=== PATIENT | female | born 1950 | race Caucasian/White ===

== ENCOUNTER 2016-04-10 22:17 | Emergency (ER) | payer OTHER, MEDICARE ==
[~2016-04-10] VITALS: Ht 162.6 cm; Wt 81.0 kg
[~2016-04-10 22:17] MED LIST changes: -CLOT10TR MT; -GLYCDRO6 OPB; -OMEP40CA41 PO
[2016-04-10 22:20] VITALS: TEMP 36.4; Ht 162.6 cm; Wt 81.0 kg
[2016-04-10] MEDS ORDERED: OPTIRAY 320 IV PRN (22:45)
[2016-04-11] MEDS ORDERED: OMEP40CA41 PO (00:09)
[2016-04-11] MEDS ORDERED: GLYCDRO6 OPB (00:10)
[2016-04-11] MEDS ORDERED: CLOT10TR MT (00:11)
--- NOTE | 2016-04-11 00:47 | EMERGENCY ROOM VISIT NOTE ---
History First contact with patient: 22:26 Chief Complaint: ABNORMAL LABS Stated Complaint: POSSIBLE BLOOD CLOT History of Present Illness The patient is a 65 year old female who presents to the Emergency Room with complaints of an elevated d-dimer. The patient reports that she has had shortness of breath for the past 1-2 months. She has had intermittent pain in the middle of her chest. She saw her primary care provider, who ordered her some basic testing. She was told today that her d-dimer was positive and she would need further testing to rule out a blood clot in her lungs. The patient also reports that she has chronic neck pain. She saw her chiropractor and mentioned that she had tingling in her left arm intermittently. She was told by the chiropractor that she may have had a stroke. She denies any numbness or weakness at this time. She denies any chest pain at this time. She denies any palpitations. She denies history of blood clots. She denies leg pain or swelling. Review of Systems A complete 10-point Review of Systems was discussed with the patient, with pertinent positives and negatives listed in the History of Present Illness. All remaining Review of Systems questions can be considered negative unless otherwise specified. Past Medical/Surgical History Medical Problems: (1) Carpal tunnel syndrome (2) GERD (gastroesophageal reflux disease) (3) HTN (hypertension) (4) Iron deficiency (5) Post menopausal mood disorder Family History Diabetes mellitus FH: gastric cancer FHx: cancer FHx: heart disease Social History Smoking Status: Never Smoker Alcohol Use: none Marital Status: Housing Status: lives with significant other Occupation Status: employed Current/Historical Medications Scheduled Aspirin (Aspirin Ec), 81 MG PO QAM Calcium Carbonate-Cholecalcife (Calcium Chews), 1 CHW PO TID Clotrimazole (Mycelex), 10 MG MT UD Cyanocobalamin (Vitamin B12), 1 TAB PO QAM Fluoxetine (Prozac), 20 MG PO QPM Lactobacillus Acidophilus (Lactinex), 1 TAB PO QAM Omeprazole (Prilosec), 40 MG PO BID [Stinging Nettel], 500 MG PO QAM Scheduled PRN Ajdkifmt-Tqgfcivbxbdg-Udxawvdv (Artificial Tears), 1-2 DROPS OPB DAILY PRN for DRYNESS Allergies Coded Allergies: Codeine (Verified Adverse Reaction, Mild, "MADE ME FEEL SO TERRIBLE", 03/21) NSAIDs (Verified Adverse Reaction, Unknown, STOMACH PROBLEMS, 03/21/15) Physical Exam Vital Signs Date Time Temp Pulse Resp B/P Pulse Ox O2 Delivery O2 Flow Rate FiO2 04/11/16 00:50 62 20 147/80 96 Room Air 04/10/16 23:37 58 16 157/80 96 Room Air 04/10/16 22:20 36.4 69 16 114/68 96 Room Air Physical Exam VITALS: Vitals are noted on the nurse's note and reviewed by myself. Vital signs stable. GENERAL: This is a 65-year-old female, in no acute distress, nondiaphoretic, well-developed well-nourished. SKIN: Capillary reflex less than 2 seconds. HEENT: Normocephalic. PERRLA. EOMI. Nares patent. Mucous membranes moist. Neck is supple without nuchal rigidity. HEART: Regular rate and rhythm without murmurs gallops or rubs. LUNGS: Clear to auscultation bilaterally without wheezes, rales or rhonchi. No retractions or accessory muscle use. ABDOMEN: Positive bowel sounds x 4. Soft, nontender. MUSCULOSKELETAL: No leg swelling or calf tenderness. NEURO: Patient was alert and oriented to person place and time. Normal sensation to light and sharp touch. Medical Decision & Procedures ER Provider Diagnostic Interpretation: CT HEAD: Comparison February 2013. No acute intracranial finding. Radiologist: Abdirahman Veras M.D. CTA CHEST: Comparison 04/14/14 Mild artifact. No evidence for PE. Dependent predominant lung opacity suspected to represent atelectasis. No effusions. Small hiatal hernia, postop changes right shoulder with prosthesis and other incidental findings. Radiologist: Abdirahman Veras M.D. Laboratory Results Test 04/10/16 22:40 Troponin I < 0.015 ng/ml (0-0.045) Thyroid Stimulating Hormone (TSH) 3.170 uIu/ml (0.300-4.500) ECG Indication: SOB/dyspnea Rate (beats per minute): 59 Rhythm: sinus bradycardia Findings: no acute ischemic change, no ectopy Change: no significant change Medical Decision Differential diagnosis includes pulmonary embolism, bronchitis, pneumonia, viral syndrome, CVA, neck pain, among others. The patient was evaluated as above. Labs were drawn and IV access was obtained. Imaging studies were performed and read by radiology as above. The patient was reassessed multiple times during their stay in the emergency department and remained in stable condition. The patient is a 65-year-old female who presents today for evaluation of an elevated d-dimer. CTA of the chest showed no evidence of pulmonary embolism. Labs from earlier today were unremarkable. A troponin was drawn and EKG was performed. Troponin was negative and EKG was unremarkable. The patient did report that her chiropractor had mentioned he thought she may have a CVA due to tingling in her left arm. A CT of the head was performed and was unremarkable. The patient was instructed to follow-up closely with her primary care provider. Based on the patient's presentation, lab results, and imaging studies, I feel the patient is stable for outpatient treatment. The patient was independently evaluated by Dr. Álvarez, ED attending physician, who agreed with my assessment and treatment plan. Discharge instructions were reviewed with the patient. The patient verbalized understanding of my assessment and treatment plan and was discharged home in good condition. Impression Primary Impression: Elevated d-dimer Departure Information Dispostion Home / Self-Care Condition GOOD Referrals Raciel Hector III, CRNP (PCP) Patient Instructions [facility] Additional Instructions Follow-up with your primary care provider. Call tomorrow for appointment. Return to the emergency department with worsening of your current condition or any new/concerning symptoms.
--- NOTE | 2016-04-11 00:47 | EMERGENCY ROOM VISIT NOTE ---
ED Visit Note First contact with patient: 22:26 Patient was seen by our PA/BUFFING MACHINE OPERATOR SEMIAUTOMATIC. I was involved in the patient's care and did evaluate the patient myself. I was involved in the care throughout the ER stay. Patient presents with an elevated d-dimer. She's had a cough and some shortness of breath. She is not toxic or febrile, she is not hypoxic. Chest CT does not show PE. The patient was reassured, she is being discharged home.
[2016-04-11 00:50] VITALS: BP 147/80; PULSE 62; O2SAT 96
--- NOTE | 2016-04-11 06:33 | DIAGNOSTIC IMAGING REPORT ---
CT HEAD WITHOUT CONTRAST (CT) CLINICAL HISTORY: tingling left arm POSSIBLE STROKE COMPARISON STUDY: 03/06/2013 TECHNIQUE: Axial CT of the brain is performed from the vertex to the skull base. IV contrast was not administered for this examination. CT DOSE: FINDINGS: No intra or extra-axial mass lesions are visualized. There is no CT evidence of acute cortical infarction. There is no evidence of midline shift. There is no acute hemorrhage. No calvarial fractures are visualized. There are minimal white matter hypodensities likely on a small vessel basis. There is no evidence of pathologic ventricular dilatation. There is no evidence of acute sinusitis IMPRESSION: No acute intracranial findings Electronically signed by: Jono Conley M.D. 04/11/2016 6:31 AM Dictated Date/Time: 04/11/2016 6:30 AM
--- NOTE | 2016-04-11 06:41 | DIAGNOSTIC IMAGING REPORT ---
CT ANGIOGRAPHY OF THE CHEST, PULMONARY EMBOLUS PROTOCOL CLINICAL HISTORY: Chest pain, shortness of breath and elevated d-dimer. COMPARISON STUDY: Chest CT April 14, 2014. TECHNIQUE: Following IV administration of 106 mL of [id number]-320, helical axial images of the chest were obtained utilizing the pulmonary embolus protocol. Maximal intensity projections and sagittal and coronal reformats were viewed on an independent 3D workstation. IV contrast was administered without complication. CT DOSE: 1058.05 mGy.cm FINDINGS: No pulmonary emboli are identified. There is no evidence of thoracic aortic dissection. The heart is mildly to moderately enlarged. There is no pericardial effusion. No enlarged thoracic lymph nodes are present. Central airways are patent. Groundglass opacity suggest atelectasis. There is no consolidation to suggest pneumonia. Bony thorax and upper abdomen are unremarkable. A right shoulder arthroplasty is noted. IMPRESSION: 1. No pulmonary emboli identified. 2. No acute intrathoracic findings. 3. Groundglass opacity suggestive of atelectasis. 4. Mild to moderate cardiomegaly. Electronically signed by: Shayne Enriquez M.D. 04/11/2016 6:39 AM Dictated Date/Time: 04/11/2016 6:32 AM
== END 2016-04-11 00:59 | disposition home or self-care (01) ==
LOC: C.EDB 22:18
DX: R79.1 Abnormal coagulation profile (principal); M54.2 Cervicalgia; G89.29 Other chronic pain; K21.9 Gastro-esophageal reflux disease without esophagitis; I10 Essential (primary) hypertension; Z79.82 Long term (current) use of aspirin; Z79.899 Other long term (current) drug therapy; R07.9 Chest pain, unspecified; R06.02 Shortness of breath

== ENCOUNTER → 2016-04-10 | Outpatient (CLI) | payer OTHER, MEDICARE ==
[~2016-04-10] MED LIST: ASPI81TA28 PO; CALC1CHW71 PO; CLOT10TR MT; CYAN100020 PO; FLUO20CA35 PO; GLYCDRO6 OPB; LCTX PO; OMEP40CA PO; OMEP40CA41 PO; PRED1SUS3 OPR; [UNRECOGNIZED DRUG - OTHER] PO
--- NOTE | 2016-04-10 16:59 | DIAGNOSTIC IMAGING REPORT ---
TWO VIEW CHEST CLINICAL HISTORY: Dyspnea. Atypical chest pain. FINDINGS: PA and lateral chest radiographs are compared to study dated 04/14/2014. Correlation is made with chest CT dated 04/14/2014. The heart is top normal for projection. There is mild atherosclerotic calcification of the thoracic aorta. Chronic interstitial thickening is similar to previous. No airspace consolidation or pleural effusion is identified. There is no pneumothorax. The skeletal structures are osteopenic. Degenerative changes noted throughout the thoracic spine. A right shoulder arthroplasty is in place. IMPRESSION: No active disease in the chest. Electronically signed by: Casey hCeema M.D. 04/10/2016 4:58 PM Dictated Date/Time: 04/10/2016 4:57 PM
[2016-04-10 17:39] LABS: BASO % 0.1 %; BASO ABS # 0.01 K/uL (0-0.2); COMPLETE YES; EOS % 1.6 %; HEMATOCRIT 42.6 % (37-47); IG% 0.4 %; LYMPH % 29.1 %; LYMPH ABS # 2.48 K/uL (1.2-3.4); MEAN CELL VOLUME 96.2 fL (80-100); MEAN CORPUSCULAR HEMOGLOBIN 32.3 pg (25-34); MEAN CORPUSCULAR HGB CONC 33.6 g/dl (32-36); MEAN PLATELET VOLUME 9.9 fL (7.4-10.4); MONO % 7.6 %; NEUT % 61.2 %; PLATELET COUNT 254 K/uL (130-400); RED BLOOD COUNT 4.43 M/uL (4.2-5.4); WHITE BLOOD COUNT 8.52 K/uL (4.8-10.8)
[2016-04-10 17:57] LABS: BLOOD UREA NITROGEN 23 mg/dl (7-18); BUN/CREATININE RATIO 25.5 (10-20); CALCIUM 8.9 mg/dl (8.5-10.1); CARBON DIOXIDE 28 mmol/L (21-32); CHLORIDE 104 mmol/L (98-107); CREATININE 0.91 mg/dl (0.60-1.20); GLUCOSE 89 mg/dl (70-99); POTASSIUM 3.8 mmol/L (3.5-5.1); SODIUM 142 mmol/L (136-145)
== END | disposition home or self-care (01) ==
LOC: C.RAD1850 16:23
PROVIDERS: ATTEND Nurse Practitioner Family
DX: R07.9 Chest pain, unspecified (principal); R06.02 Shortness of breath

== ENCOUNTER → 2016-04-29 | Outpatient (CLI) | payer OTHER, MEDICARE ==
[~2016-04-29] MED LIST changes: +CLOT10TR MT; +GLYCDRO6 OPB; -OMEP40CA PO; +OMEP40CA41 PO; -PRED1SUS3 OPR
== END | disposition home or self-care (01) ==
LOC: C.LAB1850 16:38
PROVIDERS: ATTEND Internal Medicine Clinical Cardiac Electrophysiology
DX: R06.02 Shortness of breath (principal)

== ENCOUNTER → 2017-01-27 | Outpatient (CLI) | payer OTHER, MEDICARE ==
[~2017-01-27] MED LIST changes: -CLOT10TR MT; -CYAN100020 PO; -GLYCDRO6 OPB; +MULT-506 PO; +POLYSOL4 OP; +SALON PAS TOP; +STINGING NETTLE PO; -[UNRECOGNIZED DRUG - OTHER] PO
--- NOTE | 2017-01-27 08:52 | DIAGNOSTIC IMAGING REPORT ---
ABDOMEN LIMITED (US) CLINICAL HISTORY: R10.812 Left upper quadrant abdominal tenderness [id number] COMPARISON STUDY: Abdominal ultrasound 07/25/2009. FINDINGS: Real-time sonographic imaging of the left upper quadrant. The spleen demonstrates a normal echotexture measures 11.6 cm in length. No perisplenic fluid collections. Normal left kidney which measures 10.6 cm. No hydronephrosis. IMPRESSION: No sonographic abnormality within the left upper quadrant. Electronically signed by: Benji Santa M.D. 01/27/2017 8:50 AM Dictated Date/Time: 01/27/2017 8:44 AM
== END | disposition home or self-care (01) ==
LOC: C.ULTR 08:10
PROVIDERS: ATTEND Nurse Practitioner Family
DX: R10.812 Left upper quadrant abdominal tenderness (principal)

== ENCOUNTER → 2017-01-27 | Outpatient (CLI) | payer OTHER, MEDICARE ==
--- NOTE | 2017-01-27 12:30 | DIAGNOSTIC IMAGING REPORT ---
CHEST 2 VIEWS ROUTINE HISTORY: COUGH,LUMBAR RADICULOPATHY,PRE-OPERATIVE EXAM COMPARISON: Chest 04/10/2016. FINDINGS: No pneumothorax. No pleural effusions. The heart is stable in size. The lungs are clear. Right shoulder prosthesis. Cervical spinal fusion hardware is again noted. Hazy appearance the left lung base is likely due to prominent mediastinal fat. This remains unchanged. IMPRESSION: No acute process. Electronically signed by: Benji Santa M.D. 01/27/2017 12:29 PM Dictated Date/Time: 01/27/2017 11:09 AM
== END | disposition home or self-care (01) ==
LOC: C.RAD1850 10:52
PROVIDERS: ATTEND Nurse Practitioner Family
DX: M54.16 Radiculopathy, lumbar region (principal); Z01.818 Encounter for other preprocedural examination; R05 Cough

== ENCOUNTER 2017-02-16 08:22 | Inpatient (IN) | payer BC, OTHER ==
[2017-01-21 12:09] VITALS: BMI 29.0
--- NOTE | 2017-01-21 12:50 | PAT Medication Instructions ---
Service Date Jan 21, 2017. Current Home Medication List Aspirin (Aspirin Ec), 81 MG PO QAM Calcium Carbonate-Cholecalcife (Calcium Chews), 1 CHW PO TID Fluoxetine (Prozac), 20 MG PO QPM Lactobacillus Acidophilus (Lactinex), 1 TAB PO QAM Multivitamin (Multivitamin), 1 TAB PO QAM Omeprazole (Prilosec), 40 MG PO BID Polyethylene Glycol-Propylene (Systane), 1 DROPS OP AM/HS [Salon Pas], 1 DOSE TOP PRN [Stinging Nettle], 1 TAB PO QAM Medication Instructions For Your Scheduled Surgery - Hold the following medications 24 hours prior to surgery: [Salon Pas], 1 DOSE TOP PRN - Hold the following medications the morning of surgery: Calcium Carbonate-Cholecalcife (Calcium Chews), 1 CHW PO TID Lactobacillus Acidophilus (Lactinex), 1 TAB PO QAM Multivitamin (Multivitamin), 1 TAB PO QAM [Stinging Nettle], 1 TAB PO QAM - Take the following medications the morning of surgery with a sip of water: Polyethylene Glycol-Propylene (Systane), 1 DROPS OP AM/HS Omeprazole (Prilosec), 40 MG PO BID Aspirin (Aspirin Ec), 81 MG PO QAM (okay to continue per surgeon) - Take the following medications as scheduled the night before surgery: Fluoxetine (Prozac), 20 MG PO QPM Polyethylene Glycol-Propylene (Systane), 1 DROPS OP AM/HS Omeprazole (Prilosec), 40 MG PO BID If you have any questions please call us at [phone] or [phone] or [phone]
[2017-01-21 13:04] LABS: BASO % 0.5 %; BASO ABS # 0.02 K/uL (0-0.2); EOS % 1.4 %; EOS ABS # 0.06 K/uL (0-0.5); HEMATOCRIT 44.1 % (37-47); HEMOGLOBIN 14.5 g/dL (12.0-16.0); LYMPH % 39.5 %; LYMPH ABS # 1.72 K/uL (1.2-3.4); MEAN CELL VOLUME 96.7 fL (80-100); MEAN CORPUSCULAR HEMOGLOBIN 31.8 pg (25-34); MEAN CORPUSCULAR HGB CONC 32.9 g/dl (32-36); MEAN PLATELET VOLUME 10.3 fL (7.4-10.4); MONO % 9.9 %; MONO ABS # 0.43 K/uL (0.11-0.59); NEUT % 48.7 %; NEUT ABS # 2.12 K/uL (1.4-6.5); PLATELET COUNT 227 K/uL (130-400); RED CELL DISTRIBUTION WIDTH CV 12.7 % (11.5-14.5); RED CELL DISTRIBUTION WIDTH SD 44.4 fL (36.4-46.3); WHITE BLOOD COUNT 4.35 K/uL (4.8-10.8)
[2017-01-21 13:12] LABS: CREATININE 0.87 mg/dl (0.60-1.20); POTASSIUM 4.1 mmol/L (3.5-5.1)
[2017-02-16] VITALS (8 sets, daily range): BP systolic 106–174; BP diastolic 64–89; PULSE 77–101; TEMP 34.7–36.9; O2SAT 93–100; Ht 162.6 cm; Wt 76.7 kg
[~2017-02-16] VITALS: Ht 162.6 cm; Wt 76.7 kg
[~2017-02-16 08:22] MED LIST changes: +CEFAZOLIN 1000MG IV PUSH 5 ML IV SCH; +LACTATED RINGER'S 1000ML 1,000 ML IV SCH
[2017-02-16] MEDS ORDERED: PROPOFOL IV EMULSION 10 MG/ML 20 ML VIAL IV ONE (08:45)
[2017-02-16] MEDS ORDERED: LARYING-O-JET KIT (LTA) ONE (08:45)
[2017-02-16] MEDS ORDERED: NEOSTIGMINE METHYLSULFATE 1 MG/ML 10ML VIAL ONE (08:45)
[2017-02-16] MEDS ORDERED: DEXAMETHASONE SOD INJ 4 MG/ML VIAL ONE (08:45)
[2017-02-16] MEDS ORDERED: MIDAZOLAM HCL 1 MG/ML 2ML VIAL ONE (08:45)
[2017-02-16] MEDS ORDERED: ONDANSETRON INJ 2 MG/ML 2 ML VIAL ONE ×2 (08:45→15:38)
[2017-02-16] MEDS ORDERED: LIDOCAINE HCL 2% 2 ML VIAL (20MG/ML) ONE (08:45)
[2017-02-16] MEDS ORDERED: SODIUM CHLORIDE 0.9% INJ 10 ML VIAL ONE (08:45)
[2017-02-16] MEDS ORDERED: FENTANYL CITRATE INJ 50 MCG/1 ML 2 ML VIAL ONE (08:45)
[2017-02-16] MEDS ORDERED: GLYCOPYRROLATE INJ 0.2 MG/ML VIAL ONE ×3 (08:45→11:56)
[2017-02-16] MEDS ORDERED: HYDROmorphone INJ 2 MG/ML SYR/VIAL ONE (08:46)
--- NOTE | 2017-02-16 09:39 | History & Physical Bridge Note ---
H&P Re-Evaluation Bridge Note: I have examined the patient, reviewed the History & Physical and in the interval since the performance of the History & Physical I have noted the following changes of clinical significance: No changes noted
--- NOTE | 2017-02-16 09:41 | History and Physical ---
History & Physical Date Feb 16, 2017. Chief Complaint Back and leg pain History of Present Illness The patient is a 66 year old female with complaints of Past Medical/Surgical History Medical Problems: (1) Carpal tunnel syndrome (2) GERD (gastroesophageal reflux disease) (3) HTN (hypertension) (4) Iron deficiency (5) Post menopausal mood disorder Additional History Hepatic Disease: No Endocrine Disorder: No Kidney Disease: No Hypertension: No Heart Disease: No Bleeding Tendencies: No Infectious Diseases: No Allergies Coded Allergies: Codeine (Verified Adverse Reaction, Mild, "MADE ME FEEL SO TERRIBLE", ) NSAIDs (Verified Adverse Reaction, Unknown, STOMACH PROBLEMS, 01/21/17) Home Medications Scheduled Aspirin (Aspirin Ec), 81 MG PO QAM Calcium Carbonate-Cholecalcife (Calcium Chews), 1 CHW PO TID Fluoxetine (Prozac), 20 MG PO QPM Lactobacillus Acidophilus (Lactinex), 1 TAB PO QAM Multivitamin (Multivitamin), 1 TAB PO QAM Omeprazole (Prilosec), 40 MG PO BID Polyethylene Glycol-Propylene (Systane), 1 DROPS OP AM/HS [Salon Pas], 1 DOSE TOP PRN [Stinging Nettle], 1 TAB PO QAM Physical Examination Skin: warm/dry, no rash Eyes: normal inspection, EOMI, sclerae normal ENT: normal ENT inspection, pharynx normal Head: normocephalic, atraumatic Neck: supple, no adenopathy, trachea midline Respiratory/Chest: lungs clear, normal breath sounds, no respiratory distress Cardiovascular: regular rate, rhythm, no edema, no murmur Abdomen / GI: normal bowel sounds, non tender Back: normal inspection Extremities: normal inspection, normal range of motion Neurologic/Psych: no motor/sensory deficits, alert, normal reflexes, oriented x 3 Diagnosis Lumbar spinal stenosis Plan of Treatment L2 to S1 decompression fusion
[2017-02-16] MEDS ORDERED: BACITRACIN 50000 UNIT VIAL ONE (10:27)
[2017-02-16] MEDS ORDERED: EpINEphrine INJ 1MG/ML AMP 1 MG/ML AMP ONE (10:28)
[2017-02-16] MEDS ORDERED: BUPIVACAINE 0.5 % 5 MG/1 ML MPF 30ML VIAL ONE (10:28)
[2017-02-16] MEDS ORDERED: ALBUMIN HUMAN 5% 12.5 GM/250 ML VIAL IV ONE (11:01)
[2017-02-16] MEDS ORDERED: EpHEDrine SULFATE INJ 50 MG/ML AMP ONE (12:34)
[2017-02-16] MEDS ORDERED: ONDANSETRON INJ 2 MG/ML 2 ML VIAL IV PRN (13:15)
[2017-02-16] MEDS ORDERED: EpHEDrine SULFATE INJ 50 MG/ML AMP IV PRN (13:15)
[2017-02-16] MEDS ORDERED: HYDROmorphone INJ 2 MG/ML SYR/VIAL IV PRN (13:15)
[2017-02-16] MEDS ORDERED: PHENYLEPHRINE 100MCG/ML 5ML SYR IV PRN (13:15)
[2017-02-16] MEDS ORDERED: ATROPINE SULFATE 0.1 MG/ML 5ML SYR IV PRN (13:15)
--- NOTE | 2017-02-16 13:37 | [facility] Operative Report ---
Operative Report Operative Date Feb 16, 2017. Pre-Operative Diagnosis Lumbar spinal stenosis Post-Operative Diagnosis Lumbar spinal stenosis Procedure(s) Performed #1 lumbar decompression medial facet was foraminotomies L2 3 L3 4 L4 5 L5-S1. #2 posterior spinal fusion L2 3 L3 4 L4 5 L5-S1. #3 placement posterior segmental instrumentation L2 to S1. #4 interbody fusion L4 5. #5 placement peek cage 13 x 22 mm L4 5. #6 placement locally harvested morcellized autograft in the posterior lateral gutters. #7 placement infuse collagen sponge about mask graft the posterior lateral gutters and ostial amp in the interbody spaces. Surgeon Dr. Kelly Learning Design Specialist Surgeon(s) Terese Hutchins PA-C Findings Severe spinal stenosis Specimens None per surgeon Description of Procedure Patient was met with preoperatively case discussed all questions addressed. After informed consent obtained patient was taken to the operative suite underwent intubation placed in a prone position on the [place] table top Archie frame. All bony prominences were well-padded eyes inspected to ensure no external or placed upon them. This point the lumbar spine was prepped and draped in normal sterile fashion. Sharp dissection with the assistance of Bovie cautery was performed onto an exposing the lamina and transverse processes of L2-L3 L4-L5 and sacral alar bilaterally. From a caudal cephalad fashion laminectomy of L5 L4 L3 L2 was performed with retention lateral recessed foraminal disease at the L2 through 3 4 for 5 levels. After this complete pedicle screws are placed in L2-L3 L4-L5 and S1 levels bilaterally with assistance of fluoroscopy. Through a transforaminal approach on the right a complete discectomy of L4 5 was performed and plate created to subcortical bleeding bone and a 13 x 22 mm peek cage filled with ostial amp bone graft tapped in position. The rods were then locked and final position bilaterally. The transverse processes of L2-L3 L4-L5 and sacral alar burred to subcortical bleeding bone. Infuse collagen sponge mask graft and locally harvested morcellized autograft was placed the posterior gutters. 15 round SUSHMA drain inserted. Incision was then closed 1 Vicryl in the fascia 2-0 Vicryl subcutaneous tediously 4 Monocryl for final skin closure Steri-Strips sterile dressings placed. Patient we can take PACU stable condition. Please note Terese Lanier was present at the entire procedure involved in patient positioning complex portions of the surgery and final skin closure. I attest to the content of the Intraoperative Record and any orders documented therein. Any exceptions are noted below.
[2017-02-16] MEDS ORDERED: SODIUM CHLORIDE 0.9% 1000ML 1,000 ML IV SCH (13:39)
[2017-02-16] MEDS ORDERED: DO NOT ADMINISTER FLU VACCINE PRN (13:45)
[2017-02-16] MEDS ORDERED: ALUMINUM/MAGNESIUM SUSP 30 ML UDC PO PRN (13:45)
[2017-02-16] MEDS ORDERED: hydrOXYzine HCL 25 MG TAB PO PRN (13:45)
[2017-02-16] MEDS ORDERED: PROMETHAZINE HCL INJ 12.5 MG in SODIUM CHLORIDE 0.9% 50ML 50 ML IV PRN (13:45)
[2017-02-16] MEDS ORDERED: MAGNESIUM HYDROXIDE SUSP 30 ML UDC PO PRN (13:45)
[2017-02-16] MEDS ORDERED: HYDROmorphone HCL 0.5MG/ML 50 ML CASSETTE IV PRN (13:45)
[2017-02-16] MEDS ORDERED: SOD PHOSPHATE/SOD BIPHOSPHATE ENEMA 132 ML BTL PR PRN (13:45)
[2017-02-16] MEDS ORDERED: HYDROmorphone INJ 1 MG/ML SYR IV PRN (13:45)
[2017-02-16] MEDS ORDERED: NALOXONE HCL 0.4 MG/1 ML VIAL/CARP IV PRN ×2 (13:45)
[2017-02-16] MEDS ORDERED: LORAZEPAM INJ 0.5 MG in SYRINGE 0.75 ML IV PRN (13:45)
[2017-02-16] MEDS ORDERED: FAMOTIDINE 20 MG TAB PO PRN (13:45)
[2017-02-16] MEDS ORDERED: LORAZEPAM 0.5 MG TAB PO PRN (13:45)
[2017-02-16] MEDS ORDERED: ACETAMINOPHEN 500 MG TAB PO PRN (13:45)
[2017-02-16] MEDS ORDERED: DO NOT ADMINISTER PNEUMOCOCCAL VACCINE PRN (13:45)
[2017-02-16] MEDS ORDERED: BISACODYL 10 MG SUPP PR PRN (13:45)
[2017-02-16] MEDS ORDERED: METOCLOPRAMIDE HCL INJ 5 MG/ML 2 ML VIAL IV PRN (13:45)
[2017-02-16] MEDS ORDERED: ACETAMINOPHEN IV 100 ML IV PRN (13:45)
--- NOTE | 2017-02-16 13:57 | DIAGNOSTIC IMAGING REPORT ---
LUMBAR SPINE, INTRAOPERATIVE FLUOROSCOPY HISTORY: L2-S1 decompression and fusion. FLUOROSCOPY TIME: 27 seconds. FINDINGS: Intraoperative fluoroscopy was provided for the lumbar spine. 4 fluoroscopic spot images were obtained. Posterior decompression fusion from L2 through S1 with pedicle screws and rods. The hardware is intact. IMPRESSION: Fluoroscopy provided for a L2-S1 posterior decompression and fusion. Electronically signed by: Benji Santa M.D. 02/16/2017 1:55 PM Dictated Date/Time: 02/16/2017 1:55 PM
[2017-02-16] MEDS ORDERED: HYDROmorphone HCL 0.5MG/ML 50 ML CASSETTE ONE (14:04)
[2017-02-16] MEDS ORDERED: ROCURONIUM BROMIDE 10 MG/ML 5 ML VIAL IV ONE (14:05)
--- NOTE | 2017-02-16 14:57 | Anesthesiology Progress Note ---
Anesthesia Post Op Note Date & Time Feb 16, 2017 at 14:57 Vital Signs Pain Intensity: 0 Vital Signs Past 12 Hours Date Time Temp Pulse Resp B/P (MAP) Pulse Ox O2 Delivery O2 Flow Rate FiO2 02/16/17 14:35 36.0 79 12 158/75 99 Nasal Cannula 4 02/16/17 14:25 74 12 166/84 99 Nasal Cannula 4 02/16/17 14:15 77 12 163/84 99 Oxymask 10 02/16/17 14:05 74 12 175/74 99 Oxymask 10 02/16/17 13:58 36.0 76 12 176/106 100 Oxymask 10 02/16/17 10:31 36.3 80 20 174/86 96 Room Air Notes Mental Status: alert / awake / arousable, participated in evaluation Pt Amnestic to Procedure: Yes Nausea / Vomiting: adequately controlled Pain: adequately controlled Airway Patency, RR, SpO2: stable & adequate BP & HR: stable & adequate Hydration State: stable & adequate Anesthetic Complications: no major complications apparent
[2017-02-16] MEDS: ONDANSETRON INJ 2 MG/ML 2 ML VIAL IV PRN (16:05)
[2017-02-16] MEDS: LACTATED RINGER'S 1000ML 1,000 ML IV SCH ×2 (16:35→23:17)
[2017-02-16] MEDS: CEFAZOLIN IV 2,000 MG in SYRINGE 0 ML IV SCH (19:43)
[2017-02-16] MEDS: DOCUSATE SODIUM/SENNA 50/8.6MG TAB PO SCH (20:51)
[2017-02-16] MEDS: PANTOprazole SOD 40 MG TAB PO SCH (20:51)
[2017-02-16] MEDS: FLUOXETINE HCL 20 MG CAP PO SCH (20:51)
[2017-02-16] MEDS ORDERED: NURSING VERBAL MED ORDER ONE (22:30)
[2017-02-17 03:09] VITALS: BP 115/63; PULSE 101; TEMP 36.5; O2SAT 95
[2017-02-17] MEDS: CEFAZOLIN IV 2,000 MG in SYRINGE 0 ML IV SCH (03:22)
[2017-02-17] MEDS ORDERED: HYDROmorphone INJ 1 MG/ML SYR IV PRN (06:00)
[2017-02-17] MEDS ORDERED: NURSING VERBAL MED ORDER ONE ×3 (06:00→14:30)
[2017-02-17] MEDS ORDERED: DC PCA SCH (06:00)
[2017-02-17 07:03] VITALS: BP 100/63; PULSE 84; TEMP 36.4; O2SAT 97
[2017-02-17 07:03] LABS: BASO % 0.1 %; BASO ABS # 0.01 K/uL (0-0.2); HEMATOCRIT 29.7 % (37-47); HEMOGLOBIN 9.8 g/dL (12.0-16.0); IG# 0.02 K/uL (0.00-0.02); LYMPH % 15.5 %; LYMPH ABS # 1.32 K/uL (1.2-3.4); MEAN CELL VOLUME 95.5 fL (80-100); MEAN CORPUSCULAR HEMOGLOBIN 31.5 pg (25-34); MEAN PLATELET VOLUME 9.6 fL (7.4-10.4); MONO % 10.2 %; MONO ABS # 0.87 K/uL (0.11-0.59); NEUT ABS # 6.31 K/uL (1.4-6.5); PLATELET COUNT 203 K/uL (130-400); RED CELL DISTRIBUTION WIDTH CV 12.7 % (11.5-14.5); RED CELL DISTRIBUTION WIDTH SD 43.9 fL (36.4-46.3); WHITE BLOOD COUNT 8.53 K/uL (4.8-10.8)
[2017-02-17 07:25] LABS: CALCIUM 8.1 mg/dl (8.5-10.1); CREATININE 0.82 mg/dl (0.60-1.20); POTASSIUM 4.1 mmol/L (3.5-5.1)
[2017-02-17] MEDS ORDERED: RXC5 PO (07:43)
--- NOTE | 2017-02-17 07:43 | Discharge Instructions ---
Discharge Instructions Date of Service Feb 17, 2017. Admission Reason for Admission: Spinal Stenosis Discharge Discharge Diagnosis / Problem: lumbar stenosis Discharge Goals Goal(s): Improve function Activity Recommendations Activity Limitations: per Instructions/Follow-up section . Instructions / Follow-Up Instructions / Follow-Up ACTIVITY RECOMMENDATIONS: SELF CARE INSTRUCTIONS AFTER THORACIC/LUMBAR FUSIONS 1. You may walk to your tolerance. It is good exercise for your legs and back. Expect some back and intermittent leg aches and pains. 2. You may perform "counter-top" level activities (make a sandwich, luis felipe with a project, etc.). 3. No bending or lifting of more than 10 pounds or back twisting of any nature (roll like a log when turning in bed). 4. You may ride in a car for 20-30 minutes at a time. No driving until after your first visit with your doctor. 5. Frequent changes of position and restricting sitting to 30 minutes at a time will help limit the amount of back spasms and stiffness you may experience. 6. You may discontinue the use of ambulatory aids (cane, crutches, etc.) once your strength and confidence allow. 7. You may osteopathic medicine teacher the shower and let water strike your incision when you arrive home at least once daily. Do not take a tub bath, sit in a hot tub or go into a swimming pool until after your first recheck in the office. SPECIAL CARE INSTRUCTIONS: VERY IMPORTANT TO READ AND REVIEW A. Your surgical incision has been closed with a cosmetic suture under the skin that will dissolve in about 6 weeks. In 14 days, you can use a pair of clean scissors and cut the suture that is left outside of the skin at the ends of your incision. 1. The small skin tapes can be removed 7 days after surgery if they have not fallen off by that point. 2. You may keep the wound open to air as much as possible to promote healing after post-op day number 5 unless told otherwise by your doctor. 3. If you think the wound looks like it is becoming infected (redness or worsening drainage) and/or you are experiencing fever, chill or worsening back pain and muscle spasms, contact the office so that we may evaluate you as soon as possible. B. Complications are uncommon, but please contact us if you have any signs or symptoms of: 1. wound infection (fever higher than 102.5 degrees F, redness, separation of wound, drainage, or increasing pain from the incision) 2. blood clots in legs (pain, swelling, redness and warmth in legs) 3. urinary tract infection (fever higher than 102.5 degrees F, burning upon urination or increased frequency of urination) 4. nerve problems (inability to walk on your toes or heels, numbness, loss of bowel or bladder control) 5. any other symptoms that concern you C. Please call the office at if you have any concerns or questions about your operation or recovery. D. No smoking! Smoking drastically decreases the chance of a solid fusion. E. Do not take any anti-inflammatory medications (Indocin, Advil, Motrin, Aspirin, Naprosyn, etc.) as these may inhibit the chance of a solid fusion. Tylenol is okay to take for pain. MANAGING PAIN AFTER SPINAL SURGERY 1. Narcotic medication is intended for short-term use and will be provided for surgical pain. Surgical pain usually lasts for a period of 4-6 weeks. Narcotic medication includes Percocet, Vicodin, Darvocet, Tylenol #3 or Lortab. 2. Longer-term pain is more appropriately treated with non-narcotic medication such as Tylenol ES. 3. Muscle spasm is not appropriately treated with narcotics. Muscle relaxers such as Soma, Flexeril or Skelaxin can be used along with Tylenol ES. 4. Remember that we all live with some "aches and pains". This is not unusual or uncommon after an injury or as we get older. a. Back pain is expected and may include muscle spasms for 4 to 6 weeks after surgery. The pain should gradually improve. If the pain worsens for no apparent reason, please contact the office. b. Intermittent leg pain may also be experienced and should not be concerned about unless it worsens for no apparent reason. If so, please contact the office. 5. We will provide appropriate medication within the normal guidelines of their prescribed use. We will also be very cautious and aware of potential abuse and extended duration of patients' medication needs. a. Pain medications are for your comfort and to assist with sleep and rest so that the tissue can heal. They are not provided in order to return to normal activity and should not be used through the day. To do so or worsening pain at night can result from ongoing tissue damage and development of tolerance to the prescribed medicine. 6. Please allow 2-3 days to process refills. Prescriptions will not be mailed but must be picked up at the office. FOLLOW UP VISIT: Keep your scheduled follow-up appointment. Any questions, please call the office at . Current Hospital Diet Patient's current hospital diet: Regular Diet Discharge Diet Recommended Diet: Regular Diet Procedures Procedures Performed: #1 lumbar decompression medial facet was foraminotomies L2 3 L3 4 L4 5 L5-S1. #2 posterior spinal fusion L2 3 L3 4 L4 5 L5-S1. #3 placement posterior segmental instrumentation L2 to S1. #4 interbody fusion L4 5. #5 placement peek cage 13 x 22 mm L4 5. #6 placement locally harvested morcellized autograft in the posterior lateral gutters. #7 placement infuse collagen sponge about mask graft the posterior lateral gutters and ostial amp in the interbody spaces. Pending Studies Studies pending at discharge: no Laboratory Results Lipid Panel Test 12/10/16 14:35 Range/Units Triglycerides Level 112 0-150 mg/dl Cholesterol Level 195 0-200 mg/dl HDL Cholesterol 68 mg/dl Cholesterol/HDL Ratio 2.9 LDL Cholesterol, Calculated 105 mg/dl Medical Emergencies . Who to Call and When: Medical Emergencies: If at any time you feel your situation is an emergency, please call 911 immediately. . Non-Emergent Contact Non-Emergency issues call your: Primary Care Provider . "Provider Documentation" section prepared by Jus Kelly. . VTE Core Measure Inpt VTE Proph given/why not?: Yolanda Malcolm, SCD's
--- NOTE | 2017-02-17 08:07 | Anesthesiology Progress Note ---
Anesthesia Post Op Note Date & Time Feb 17, 2017 at 08:07 Vital Signs Pain Intensity: 3.0 Vital Signs Past 12 Hours Date Time Temp Pulse Resp B/P (MAP) Pulse Ox O2 Delivery O2 Flow Rate FiO2 02/17/17 07:42 Room Air 02/17/17 07:03 36.4 84 16 100/63 (75) 97 Room Air 02/17/17 03:09 36.5 101 18 115/63 (80) 95 Room Air 02/16/17 23:20 Room Air 02/16/17 23:12 36.9 100 18 106/64 (78) 93 Room Air Notes Mental Status: alert / awake / arousable, participated in evaluation Pt Amnestic to Procedure: Yes Nausea / Vomiting: adequately controlled Pain: adequately controlled Airway Patency, RR, SpO2: stable & adequate BP & HR: stable & adequate Hydration State: stable & adequate Anesthetic Complications: no major complications apparent
[2017-02-17] MEDS: LACTOBACILLUS ACIDOPHILUS (FLORANEX) TAB PO SCH (08:33)
[2017-02-17] MEDS: PANTOprazole SOD 40 MG TAB PO SCH ×2 (08:33→21:59)
[2017-02-17] MEDS: ASPIRIN 81 MG ECTAB PO SCH (08:33)
--- NOTE | 2017-02-17 08:48 | Clinical Documentation Query ---
CAMMY Rivas : CLINICAL DOCUMENTATION QUERY Patient is a 66 year old female who underwent LS posterior decompression and fusion on 02/16. Preoperative H&H was 14.5 g/dl and 44.1%. POD #1, repeat values were 9.8 g/dl and 29.7%. EBL for the procedure was 500 ml's with an additional 80 ml's documented to date. Additionally, net I/O is positive for ~1,700 ml's at this time. She is being monitored with serial hematology and I/O. Please clarify as clinically appropriate. Thank you. In your clinical opinion is this patient being managed for: ( ) Acute blood loss and hemodilutional anemia ( ) Not Agree ( ) Other explanation of clinical findings (Please Explain) ( ) Unable to determine (Please Define) ( ) Need to Discuss The medical record reflects the following clinical findings, treatment, and risk factors. Clinical Indicators: As above Treatment:She is being monitored with serial hematology and I/O Risk Factors: Acute perioperative blood losses and IVF administration Please clarify and document your clinical opinion in the progress notes and discharge summary. Terms such as "probable", "suspected", "likely", "questionable", "possible", or "still to be ruled out" are acceptable. IF IN AGREEMENT, YOU MUST DOCUMENT ABOVE DIAGNOSTIC STATEMENT IN DAILY PROGRESS NOTES AND DISCHARGE SUMMARY. This document is not part of the patient's record. Thank You, Parker Ford, MONY [phone]
[2017-02-17 10:18] VITALS: BP 104/66; PULSE 82; O2SAT 99
[2017-02-17 10:40] VITALS: BP 116/62; PULSE 83; TEMP 36.8; O2SAT 94
--- NOTE | 2017-02-17 12:04 | Progress Note ---
Progress Note Date of Service Feb 17, 2017. Progress Note Patient's postop day #1 multilevel lumbar decompression fusion. Back pain is controlled. Leg pain improved. On exam she is good strength testing is sitting in a chair comfortable. Assessment status post multilevel lumbar decompression fusion replant this time will continue with physical therapy advance her bowel regiment anticipate home graft this week.
[2017-02-17] MEDS: ONDANSETRON INJ 2 MG/ML 2 ML VIAL IV PRN (12:14)
[2017-02-17] MEDS ORDERED: SALONPAS EXT PRN (14:30)
[2017-02-17] MEDS ORDERED: TRAMADOL HCL 50 MG TAB PO PRN (14:30)
[2017-02-17 15:13] VITALS: BP 134/71; PULSE 82; TEMP 36.4; O2SAT 96
[2017-02-17] MEDS: OXYCODONE HCL IR 5 MG TAB (IMMEDIATE RELEASE) PO PRN (19:39)
[2017-02-17] MEDS: DOCUSATE SODIUM/SENNA 50/8.6MG TAB PO SCH (22:00)
[2017-02-17] MEDS: FLUOXETINE HCL 20 MG CAP PO SCH (22:00)
[2017-02-17 23:09] VITALS: BP 120/84; PULSE 100; TEMP 37.4; O2SAT 90
[2017-02-18] MEDS: POLYETHYLENE (MIRALAX) 17 GM PACK PO SCH ×4 (05:41→23:10)
[2017-02-18] MEDS: ASPIRIN 81 MG ECTAB PO SCH (07:07)
[2017-02-18] MEDS: LACTOBACILLUS ACIDOPHILUS (FLORANEX) TAB PO SCH (07:08)
[2017-02-18] MEDS: PANTOprazole SOD 40 MG TAB PO SCH ×2 (07:08→21:17)
[2017-02-18 07:30] VITALS: BP 118/70; PULSE 90; TEMP 36.7; O2SAT 94
[2017-02-18 08:01] VITALS: O2SAT 94
[2017-02-18] MEDS: OXYCODONE HCL IR 5 MG TAB (IMMEDIATE RELEASE) PO PRN ×2 (10:51→19:33)
--- NOTE | 2017-02-18 10:52 | Progress Note ---
Progress Note Date of Service Feb 18, 2017. Progress Note Patient is postoperative day #2. Back pain is controlled. Leg pain improved. Vital signs stable. On exam she sitting in chair at bedside as good strength testing. Assessment status post multilevel lumbar decompression fusion. Plan at this time will continue physical therapy advance her bowel regimen anticipate home tomorrow.
[2017-02-18 11:22] VITALS: BP 122/68; PULSE 96; TEMP 36.8; O2SAT 94
[2017-02-18 16:18] VITALS: BP 113/68; PULSE 100; TEMP 36.9; O2SAT 91
[2017-02-18] MEDS: DOCUSATE SODIUM/SENNA 50/8.6MG TAB PO SCH (21:17)
[2017-02-18] MEDS: FLUOXETINE HCL 20 MG CAP PO SCH (21:17)
[2017-02-18 23:43] VITALS: BP 125/72; PULSE 94; TEMP 36.7; O2SAT 94
[2017-02-19] MEDS: OXYCODONE HCL IR 5 MG TAB (IMMEDIATE RELEASE) PO PRN ×2 (04:50→10:58)
[2017-02-19] MEDS: POLYETHYLENE (MIRALAX) 17 GM PACK PO SCH (05:33)
[2017-02-19 06:35] VITALS: BP 128/65; PULSE 86; TEMP 36.7; O2SAT 94
[2017-02-19] MEDS: LACTOBACILLUS ACIDOPHILUS (FLORANEX) TAB PO SCH (07:26)
[2017-02-19] MEDS: ASPIRIN 81 MG ECTAB PO SCH (07:26)
[2017-02-19] MEDS: PANTOprazole SOD 40 MG TAB PO SCH (07:26)
--- NOTE | 2017-02-19 08:42 | Discharge Summary ---
Orthopedic Discharge Summary Admission Date/Reason Feb 16, 2017 at 10:30 Spinal Stenosis. Discharge Date/Disposition Feb 19, 2017 Home Diagnosis Principal Diagnosis: Lumbar spinal stenosis Admission Physical Exam As per Admitting History & Physical. Hospital Course Patient underwent lumbar decompression fusion tolerated this well as taken to the orthopedic floor postop we. Postoperative day #1 she was up and ambulatory progressing nicely through postoperative day #2 subsequently postop day #3 she was discharged home. Discharge orders and instructions can be found on the chart for further review. Discharge Instructions Please refer to the electronic Patient Visit Report (Discharge Instructions) for additional information.
[2017-02-19 09:57] VITALS: BP 128/65; PULSE 86; TEMP 36.7; O2SAT 94
== END 2017-02-19 11:03 | disposition home or self-care (01) | DRG 455 ==
LOC: C.ACU 08:22 → C.3E 10:30 → ENRESERV 14:41
PROVIDERS: ADMIT Orthopaedic Surgery Orthopaedic Surgery of the Spine; ATTEND Orthopaedic Surgery Orthopaedic Surgery of the Spine
PROC: 0SG1071 Fusion of 2 or more Lumbar Vertebral Joints with Autologous Tissue Substitute, Posterior Approach, Posterior Column, Open Approach (ICD-10-PCS; principal; 2017-02-16 10:15)
PROC: 3E0U0GB Introduction of Recombinant Bone Morphogenetic Protein into Joints, Open Approach (ICD-10-PCS; principal; 2017-02-16 10:15)
PROC: 0SG3071 Fusion of Lumbosacral Joint with Autologous Tissue Substitute, Posterior Approach, Posterior Column, Open Approach (ICD-10-PCS; principal; 2017-02-16 10:15)
PROC: 0SG00AJ Fusion of Lumbar Vertebral Joint with Interbody Fusion Device, Posterior Approach, Anterior Column, Open Approach (ICD-10-PCS; principal; 2017-02-16 10:15)
PROC: 0ST20ZZ Resection of Lumbar Vertebral Disc, Open Approach (ICD-10-PCS; principal; 2017-02-16 10:15)
DX: M48.061 Spinal stenosis, lumbar region without neurogenic claudication (principal); K21.9 Gastro-esophageal reflux disease without esophagitis; D50.9 Iron deficiency anemia, unspecified; M19.90 Unspecified osteoarthritis, unspecified site; F32.9 Major depressive disorder, single episode, unspecified; Z96.611 Presence of right artificial shoulder joint; Z79.82 Long term (current) use of aspirin; Z79.899 Other long term (current) drug therapy

== ENCOUNTER → 2017-06-16 | Day surgery (SDC) | payer BC, MEDICARE, OTHER ==
[2017-06-05 13:19] VITALS: BMI 26.0
[~2017-06-16] VITALS: Ht 162.6 cm; Wt 71.4 kg
[~2017-06-16] MED LIST changes: -CEFAZOLIN 1000MG IV PUSH 5 ML IV SCH; +FEXO1TAB46 PO; -LACTATED RINGER'S 1000ML 1,000 ML IV SCH; +LIDOCAINE HCL 2% 2 ML VIAL (20MG/ML) ONE; -MULT-506 PO; +PROPOFOL IV EMULSION 10 MG/ML 20 ML VIAL ONE; -SALON PAS TOP; -STINGING NETTLE PO
[2017-06-16 11:34] VITALS: Ht 162.6 cm; Wt 71.4 kg
--- NOTE | 2017-06-16 12:00 | Endo History and Physical ---
History & Physical Date of Service: June 16, 2017. Chief Complaint: HISTORY OF GASTRIC POLYPS GERD Referring Physician: WADE HAMPTON History of Present Illness 66 yo CF who presents for EGD secondary to GERD and history of gastric polyps. Past Medical History Arthritis, Gastrointestinal Disorder, Reflux Past Surgical History Hx Cardiac Surgery: No Hx Internal Defibrillator: No Hx Pacemaker: No Hx Abdominal Surgery: Yes (HERNIA REPAIR, TUBAL) Hx Post-Op Nausea and Vomiting: No ( ) Hx Cancer Surgery: No Hx Thoracic Surgery: No Hx Orthopedic: Yes (LOWER BACK SURGERY, CERVICAL FUSION X2 (FULL ROM), RT SHOULDER REPLACEMENT) Hx Urinary Tract Surgery: No Family History Colon CA Social History Smoking Status: Never Smoker Hx Substance Use: No Hx Alcohol Use: Yes (OCCASIONAL DRINK OF WINE) Allergies Coded Allergies: Codeine (Verified Adverse Reaction, Mild, "MADE ME FEEL SO TERRIBLE", ) NSAIDs (Verified Adverse Reaction, Unknown, STOMACH PROBLEMS, 06/16/17) Current Medications Reported Home Medications Medications Dose Route/Sig Max Daily Dose Days Date Category Janneth (Fexofenadine Hcl) 180 Mg Tab 180 Mg PO DAILY 06/05/17 Reported Systane (Polyethylene Glycol-Propylene) 1 Ursula Ursula 1 Drops OP AM/HS 01/21/17 Reported Prilosec (Omeprazole) 40 Mg Cap 40 Mg PO BID 04/11/16 Reported Aspirin Ec (Aspirin) 81 Mg Tab 81 Mg PO QAM 10/28/13 Reported Calcium Chews (Calcium Carbonate-Cholecalcife) 1 Chw Chw 1 Chw PO TID 03/06/13 Reported Lactinex (Lactobacillus Acidophilus) Tab 1 Tab PO QAM 04/01/11 Reported Prozac (Fluoxetine HCl) 20 Mg Cap 20 Mg PO QAM 05/10/10 Reported Vital Signs Weight (Kilograms): 71.36 Height (Feet): 5 Height (Inches): 4 Date Time Temp Pulse Resp B/P (MAP) Pulse Ox O2 Delivery O2 Flow Rate FiO2 06/16/17 11:41 36.6 78 18 143/81 (101) 97 Room Air Physical Exam General Appearance: WD/WN, no apparent distress Respiratory/Chest: Auscultation: breath sounds normal Cardiovascular: Heart Auscultation: RRR Abdomen: Bowel Sounds: normal Inspection & Palpation: soft, non-distended, no tenderness, guarding & rebound Assessment and Plan Assessment: 66 yo CF who presents for EGD secondary to GERD and history of gastric polyps. Plan: Proceed with EGD.
--- NOTE | 2017-06-16 12:23 | Discharge Instructions ---
Endoscopy Patient Instructions Date / Procedure(s) Performed June 16, 2017. EGD Allergy Information Coded Allergies: Codeine (Verified Adverse Reaction, Mild, "MADE ME FEEL SO TERRIBLE", ) NSAIDs (Verified Adverse Reaction, Unknown, STOMACH PROBLEMS, 06/16/17) Discharge Date / Findings June 16, 2017. Gastric polyps s/p biopsies Medication Instructions OK to resume all medications today as prescribed Reported Home Medications Medications Dose Route/Sig Max Daily Dose Days Date Category Janneth (Fexofenadine Hcl) 180 Mg Tab 180 Mg PO DAILY 06/05/17 Reported Systane (Polyethylene Glycol-Propylene) 1 Ursula Ursula 1 Drops OP AM/HS 01/21/17 Reported Prilosec (Omeprazole) 40 Mg Cap 40 Mg PO BID 04/11/16 Reported Aspirin Ec (Aspirin) 81 Mg Tab 81 Mg PO QAM 10/28/13 Reported Calcium Chews (Calcium Carbonate-Cholecalcife) 1 Chw Chw 1 Chw PO TID 03/06/13 Reported Lactinex (Lactobacillus Acidophilus) Tab 1 Tab PO QAM 04/01/11 Reported Prozac (Fluoxetine HCl) 20 Mg Cap 20 Mg PO QAM 05/10/10 Reported Provider Instructions Activity Restrictions - No exercising or heavy lifting for 24 hours. - Do not drink alcohol the day of the procedure. - Do not drive a car or operate machinery until the day after the procedure. - Do not make any important decisions or sign important papers in 24 hours after the procedure. Following Day: - Return to full activity which may include returning to work/school. Diet Start your diet with liquids and light foods (jello, soup, juice, toast). Then eat your usual diet if not nauseated. Treatment For Common After Affects For mild abdominal pain, bloating, or excessive gas: - Rest - Eat lightly - Lie on right side Follow-Up Information Follow-up with WADE HAMPTON as scheduled Anesthesia Information What You Should Know You have had a procedure that required some medicine to reduce anxiety and discomfort. This treatment is called moderate sedation. After receiving the treatment, you may be sleepy, but you will be able to breathe on your own. The effects of the treatment may last for several hours. Follow these instructions along with Activity/Diet recommendations noted above: * Do NOT do anything where dizziness or clumsiness would be dangerous. * Rest quietly at home today, then you can be up and about tomorrow. * Have a responsible person stay with you the rest of today. * You may have had an I.V. today. If so, you may take the dressing off later today. Recommendations Call your doctor if: * Trouble breathing * Continuous vomiting for more than 24 hours * Temperature above 101 degrees * Severe abdominal pain or bloating * Pain not relieved by pain medicine ordered * There is increased drainage or redness from any incision * A large amount of rectal bleeding greater than 2-3 tablespoons. (If you had a polyp/s removed or have hemorrhoids, a small amount of blood - from the rectum is to be expected.) * You have any unanswered questions or concerns. IN THE EVENT OF A SERIOUS EMERGENCY, GO TO THE NEAREST EMERGENCY ROOM Your discharge instructions were prepared by provider Mike Forrest. Patient Instructions Signature Page Roxana Schaefer Patient (or Guardian) Signature/Date: I have read and understand the instructions given to me by my caregivers. Caregiver/RN/Doctor Signature/Date: The above-named patient and/or guardian has received patient instructions on this date. + Original Patient Signature Page (only) stays with chart. Please make copy for patient.
--- NOTE | 2017-06-16 12:31 | GI REPORT ---
Patient Name: Roxana Schaefer Procedure Date: 06/16/2017 12:01 PM Date of : 1950 Admit Type: Outpatient Age: 66 Gender: Female Attending MD: Mike Forrest DO Procedure: Upper GI endoscopy Providers: Mike Forrest DO Referring MD: Raciel Hector Indications: Follow-up of gastro-esophageal reflux disease, History of Gastric polyps Medicines: Monitored Anesthesia Care Complications: No immediate complications. Estimated Blood Loss: Estimated blood loss: none. Procedure: Pre-Anesthesia Assessment: - Prior to the procedure, a History and Physical was performed, and patient medications and allergies were reviewed. The patient's tolerance of previous anesthesia was also reviewed. The risks and benefits of the procedure and the sedation options and risks were discussed with the patient. All questions were answered, and informed consent was obtained. Prior Anticoagulants: The patient has taken no previous anticoagulant or antiplatelet agents. ASA Grade Assessment: II - A patient with mild systemic disease. After reviewing the risks and benefits, the patient was deemed in satisfactory condition to undergo the procedure. After obtaining informed consent, the endoscope was passed under direct vision. Throughout the procedure, the patient's blood pressure, pulse, and oxygen saturations were monitored continuously. The scope was introduced through the mouth, and advanced to the second part of duodenum. The upper GI endoscopy was accomplished without difficulty. The patient tolerated the procedure well. Findings: The examined esophagus was normal. Multiple 3 mm sessile polyps with no stigmata of recent bleeding were found in the gastric fundus. Biopsies were taken with a cold forceps for histology. The examined duodenum was normal. Impression: - Normal esophagus. - Multiple gastric polyps. Biopsied. - Normal examined duodenum. Recommendation: - Resume previous diet. - Continue present medications. - Await pathology results. - Return to primary care physician as previously scheduled. Mike Forrest DO 06/16/2017 12:31:17 PM This report has been signed electronically. Note Initiated On: 06/16/2017 12:01 PM Number of Addenda: 0 I attest to the content of the Intraoperative Record and orders documented therein, exceptions below {[id number]}
[2017-06-16 12:56] VITALS: BP 125/68; PULSE 60; O2SAT 99
--- NOTE | 2017-06-16 13:00 | Anesthesiology Progress Note ---
Anesthesia Post Op Note Date & Time June 16, 2017 at 13:00 Vital Signs Pain Intensity: 0 Vital Signs Past 12 Hours Date Time Temp Pulse Resp B/P (MAP) Pulse Ox O2 Delivery O2 Flow Rate FiO2 06/16/17 12:56 60 16 125/68 (87) 99 Room Air 06/16/17 12:41 66 16 128/76 (93) 100 Room Air 06/16/17 12:26 36.2 73 16 107/57 (74) 95 Room Air 06/16/17 11:41 36.6 78 18 143/81 (101) 97 Room Air Notes Mental Status: alert / awake / arousable, participated in evaluation Pt Amnestic to Procedure: Yes Nausea / Vomiting: adequately controlled Pain: adequately controlled Airway Patency, RR, SpO2: stable & adequate BP & HR: stable & adequate Hydration State: stable & adequate Anesthetic Complications: no major complications apparent
== END | disposition home or self-care (01) ==
LOC: C.GI 10:45
PROVIDERS: ATTEND Internal Medicine
DX: K31.7 Polyp of stomach and duodenum (principal); K21.9 Gastro-esophageal reflux disease without esophagitis; M19.90 Unspecified osteoarthritis, unspecified site; Z88.5 Allergy status to narcotic agent; Z88.6 Allergy status to analgesic agent; Z79.82 Long term (current) use of aspirin; Z98.1 Arthrodesis status; Z96.611 Presence of right artificial shoulder joint

== ENCOUNTER 2021-08-14 06:47 | Observation (INO) ==
--- NOTE | 2021-07-10 13:09 | PAT Medication Instructions ---
Medication Instructions Date of Service July 10, 2021 Home Medications Medication Instructions Recorded albuterol sulfate 90 mcg/actuation 2 puff INHALATION Q6H PRN #18 gm 08/07/20 aerosol inhaler fluoxetine 20 mg capsule 20 mg PO QPM #90 cap 01/08/21 albuterol sulfate 90 mcg/actuation aerosol inhaler 2 puff INHALATION Q6H PRN calcium carbonate 500 mg-vitamin D3 5 mcg (200 unit) tablet (Calcium 500 + D) 2 tab PO QAM fexofenadine 180 mg tablet (Allergy Relief (fexofenadine)) 180 mg PO QAM multivitamin 1 tab PO QAM fluoxetine 20 mg capsule 20 mg PO QPM DO NOT take the morning of surgery calcium carbonate 500 mg-vitamin D3 5 mcg (200 unit) tablet (Calcium 500 + D) 2 tab PO QAM fexofenadine 180 mg tablet (Allergy Relief (fexofenadine)) 180 mg PO QAM multivitamin 1 tab PO QAM Take morning of surgery With a small sip of water, OTHERWISE NOTHING TO EAT OR DRINK AFTER MIDNIGHT: albuterol sulfate 90 mcg/actuation aerosol inhaler 2 puff INHALATION Q6H PRN (use if needed; please bring rescue inhaler with you to hospital day of surgery if possible) Take evening before surgery albuterol sulfate 90 mcg/actuation aerosol inhaler 2 puff INHALATION Q6H PRN (if needed) fluoxetine 20 mg capsule 20 mg PO QPM Other Notes If you have any questions please call us at [phone] or [phone] or [phone] or [phone]
--- NOTE | 2021-07-12 08:31 | Anesthesiology Consultation ---
Date of Service July 12, 2021 Assessment & Plan (1) Encounter for pre-operative examination: - difficult airway: h/o cervical arthrodesis x 2 and glidescope intubation. - COVID screening: Per assessment on 07/12/2021: Travel screen negative, no known COVID-19 positive contacts or current COVID-19 related symptoms in past 2 weeks. Pt vaccinated. Surgeon arranging preop COVID testing, scheduled 08/09/2021. Awaiting results. Chart Review Chart Review: Acceptable Risk for Surgery and Patient seen in Pre Admission Testing Teaching & Discussion Pre-Anesthesia Teaching/Discussion Notes: Instructed NPO after midnight before surgery, except medications with 15 cc of water. Medication instructions provided according to the PAT guidelines. History Surgery Operation Date: 08/14/21 11:55 Proposed Procedures p Left Total Shoulder Arthroplasty, Distal Clavical Excision, Biceps Tenodesis - Manny Mckeon MD Height/Weight Height: 5 ft 5.25 in Weight: 72.8 kg Allergies Allergy/AdvReac Type Severity Reaction Status Date / Time codeine AdvReac Mild [place] Verified 07/10/21 11:36 "terrible" NSAIDS (Non-Steroidal AdvReac Mild Stomach Verified 07/10/21 13:10 Anti-Inflamma issues sabrina dressing Allergy Mild Skin Uncoded 07/10/21 13:10 "burnt" Medications Home Medications Medication Instructions Recorded Confirmed Last Taken albuterol sulfate 90 mcg/actuation 2 puff INHALATION Q6H PRN #18 gm 08/07/20 07/10/21 Unknown aerosol inhaler calcium carbonate 500 mg-vitamin 2 tab PO QAM 10/26/20 07/10/21 11/20/20 D3 5 mcg (200 unit) tablet (Calcium 500 + D) fexofenadine 180 mg tablet 180 mg PO QAM 10/26/20 07/10/21 11/20/20 (Allergy Relief (fexofenadine)) multivitamin 1 tab PO QAM 10/26/20 07/10/21 11/20/20 fluoxetine 20 mg capsule 20 mg PO QPM #90 cap 01/08/21 07/10/21 Unknown Past Medical History Medical History (Updated 07/12/21 @ 08:41 by Deandra Huynh PA-C) Carotid artery plaque mild bilat ICA on 2021 neck CTA Depression pt denies, states occasionally takes fluoxetine for xavi-menopausal mood swings when needed GERD (gastroesophageal reflux disease) controlled, stable per pt History of skin cancer History of uterine leiomyoma HTN (hypertension) Per records, pt denies Lumbosacral stenosis with neurogenic claudication Mild cognitive impairment Word searching issues, follows with [place] neuro Palpitations pt denies Schatzki's ring of distal esophagus Seasonal allergies Reason for inhaler Temporomandibular joint disorder Right side clicking, no locking Patient denies h/o stroke, seizures, heart attack, heart failure, DM, blood clots or blood transfusions. Exercise / Class Metabolic Activity II 4-5 Yardwork/Stairs/Walk up hill (denies CP or SOB with 1 FOS) Past Family History Family History Father Family history of heart disease Myocardial infarction Brother Prostate cancer Asthma Mother Stomach cancer Other No family history of adverse response to anesthesia No pertinent family history in first degree relatives Denies family history of Ovarian cancer Breast cancer Colorectal cancer Past Surgical History Surgical History History of colonoscopy History of esophagogastroduodenoscopy (EGD) Multiple (most recent 11/21/20) History of lumpectomy RT (BENIGN) History of spinal fusion L2-S1 discectomy and fusion (02/16/17): Grade view 1 via elective glidescope #3 (limited cervical ROM), ETT 7 at [facility] History of tonsillectomy 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 ([facility] Ja) History of total shoulder replacement RIGHT History of tubal ligation History of umbilical hernia repair Status post cervical arthrodesis x2 Past Anesthesia History Difficult Airway and No Family Hx of Anesthesia Complications History of PONV No Hx of Motion Sickness and History of PONV (once, pt states otherwise no issues) Social History Smoking Status: Never smoker Do You Dip or Chew Tobacco: No Hx Alcohol Use: Yes Alcohol type: wine alcohol intake frequency: a few times a month Hx Substance Use: No substance use type: does not use Review of Systems Snoring, denies witnessed apneas. Patient denies chest pain, shortness of breath, dyspnea on exertion, fever, chills, cough, or wheezing. Physical Exam Vital Signs Vitals BP 113/72 P 71 SP02 96% on RA RESP 17 Physical Limited cervical extension range of motion TMD 3.5 finger breaths Mallampati Score 2 Dentition: intact, two missing teeth-right upper side and left lower side, one cap right lower side; denies chipped teeth, implants or bridges Lungs: normal respiratory effort. Clear throughout to auscultation, no adventitious breath sounds Cardiac: regular rate and rhythm, no murmurs noted Carotid arteries: negative bruit bilat Lab Results Anesthesia Preop Results Results Anesthesia Widget: WBC 4.41 K/uL (4.8-10.8) L 07/12/21 Hgb 13.4 g/dL (12.0-16.0) 07/12/21 Hct 41.7 % (37-47) 07/12/21 Plt 274 K/uL (130-400) 07/12/21 Na 139 mmol/L (136-145) 07/12/21 K 4.2 mmol/L (3.5-5.1) 07/12/21 Cl 104 mmol/L (98-107) 07/12/21 CO2 29 mmol/L (21-32) 07/12/21 BUN 25 mg/dl (6-23) H 07/12/21 Creat 0.95 mg/dl (0.6-1.2) 07/12/21 Glucose Level 96 mg/dl (70-99(Fasting)) 07/12/21 PT 10.8 Seconds (9.0-12.0) 07/12/21 PTT 27.5 Seconds (21.0-31.0) 07/12/21 INR 1.0 (0.9-1.1) 07/12/21 HA1c 5.3 % (4.5-5.6) 07/12/21 Urine Color Dark Yellow 07/12/21 Urine Appearance Clear (Clear) 07/12/21 Urine pH 5.0 (4.5-7.5) 07/12/21 Urine Specific [place] 1.027 (1.000-1.030) 07/12/21 Urine Protein Negative (Negative) 07/12/21 Urine Glucose (UA) Negative (Negative) 07/12/21 Urine Ketones Trace (Negative) H 07/12/21 Urine Blood Negative (Negative) 07/12/21 Urine Nitrite Negative (Negative) 07/12/21 Urine Bilirubin Negative (Negative) 07/12/21 Urine Urobilinogen Negative (Negative) 07/12/21 Urine Leukocyte Esterase 2+ (Negative) H 07/12/21 Urine WBC (Auto) >30 /hpf (0-5) H 07/12/21 Urine RBC (Auto) 0-4 /hpf (0-4) 07/12/21 Urine Hyaline Casts (Auto) 1-5 /lpf (0-5) 07/12/21 Urine Epithelial Cells (Auto) >30 /lpf (0-5) H 07/12/21 Urine Bacteria (Auto) 1+ (Negative) H 07/12/21 Blood Type O Positive 07/12/21 Antibody Screen NEGATIVE 07/12/21 Testing Laboratory Results Surgeon's office made aware of abnormal UA. Electrocardiogram Date: 04/02/21 NSR, rate 75 bpm Chest X-Ray Date: 04/02/21 Left shoulder arthroplasty is incidentally noted. Lung volumes are normal. Lungs are clear. There is no pneumothorax or pleural effusion. Cardiac size is stable. Mediastinal contours are normal. There is no evidence for pulmonary edema. IMPRESSION: No acute cardiopulmonary findings. Other Testing Event monitor 04/16/20 NSR, one episode of an SVT, asymptomatic < 10 bpm Brain MRI 10/12/20 No acute intracranial findings. No change in appearance of the brain since MRI of December 03, 2015. Neck CTA 10/12/20 Lung apices are clear. There is no cervical spine fracture. Postoperative finding within the cervical spine are noted. The bilateral common carotid, cervical internal carotid and vertebral arteries are patent. There is mild atherosclerotic plaque within the bilateral cervical internal carotid arteries without stenosis. There is no dissection within the major vessels of the neck. CTA of the head will be reported separately. IMPRESSION: No stenosis or dissection within the major vessels of the neck. Head CTA 10/12/20 No acute intracranial hemorrhage, midline shift or mass affect is present. Ventricular system is normal. Basal cisterns are patent. There are no extra- axial collections. The bilateral M1, M2, A1 and A2 segments are patent. There is no central vessel occlusion. There is no intracranial aneurysm. There is persistence of the bilateral posterior cerebral arteries. Posterior circulation is intact. IMPRESSION: Unremarkable CTA of the head.
--- NOTE | 2021-08-13 18:53 | History & Physical Report ---
Date of Service August 13, 2021 Assessment & Plan (1) Primary osteoarthritis, left shoulder: Plan: Treatment options discussed with the patient. She has failed conservative measures. Risks, benefits and alternatives to surgery including but not limited to infection, DVT, pain, stiffness, need for revision surgery, damage to blood vessels, damage to nerves, PE, , were discussed with the patient and they wish to proceed. Plan on left total shoulder arthroplasty, open distal clavicle excision. Surgery scheduled for [facility] on 08/14/[address] Mckeon. All questions answered. Plan on ultram post op. F/u post operatively. History of Present Illness Chief Complaint: Left shoulder pain Primary Care Provider: Raciel Hector, III, OWNER MANAGER 71 year old female with PMHx significant for GERD, carotid artery disease, depression who presents with ongoing left shoulder pain. Pain interfering with her daily activities. She has failed conservative measures including injections and OTC medications. She would like to proceed with surgery. Patient denies headaches, sweats, fevers, chills, double vision, blurred vision, cough, sore throat, dysphagia, chest pain, sob, wheezing, n/v/d/c, numbness, tingling, fatigue, urinary symptoms, mood disorders. ROS positive for left shoulder pain and stiffness. Allergies Allergy/AdvReac Type Severity Reaction Status Date / Time codeine AdvReac Mild [place] Verified 07/18/21 07:51 "terrible" NSAIDS (Non-Steroidal AdvReac Mild Stomach Verified 07/18/21 07:51 Anti-Inflamma issues sabrina dressing Allergy Mild Skin Uncoded 07/18/21 07:51 "burnt" Home Medications Medication Instructions Recorded Confirmed Type albuterol sulfate 90 mcg/actuation 2 puff INHALATION Q6H PRN #18 gm 08/07/20 07/18/21 Rx aerosol inhaler calcium carbonate 500 mg-vitamin 2 tab PO QAM 10/26/20 07/18/21 History D3 5 mcg (200 unit) tablet (Calcium 500 + D) fexofenadine 180 mg tablet 180 mg PO QAM 10/26/20 07/18/21 History (Allergy Relief (fexofenadine)) multivitamin 1 tab PO QAM 10/26/20 07/18/21 History fluoxetine 20 mg capsule 20 mg PO QPM #90 cap 01/08/21 07/18/21 Rx Past Med/Surg History Medical History Carotid artery plaque Depression GERD (gastroesophageal reflux disease) History of skin cancer History of uterine leiomyoma HTN (hypertension) Lumbosacral stenosis with neurogenic claudication Mild cognitive impairment Palpitations Schatzki's ring of distal esophagus Seasonal allergies Temporomandibular joint disorder Surgical History History of colonoscopy History of esophagogastroduodenoscopy (EGD) History of lumpectomy History of spinal fusion History of tonsillectomy History of total right hip replacement History of total shoulder replacement History of tubal ligation History of umbilical hernia repair Status post cervical arthrodesis Family History Father Family history of heart disease Myocardial infarction Brother Prostate cancer Asthma Mother Stomach cancer Other No family history of adverse response to anesthesia No pertinent family history in first degree relatives Denies family history of Ovarian cancer Breast cancer Colorectal cancer Social History Smoking Status: Never smoker Second Hand Exposure: No; Hx Alcohol Use: Yes Alcohol type: wine Alcohol type Comment: wine coolers Alcohol Intake Frequency: Monthly or Less Hx Substance Use: No Preferred Language: Greenlandic Communication Ability: Effective Visual Impairment: No Limitations Hearing Ability: Normal Space Studies Faculty Member Required: No Beliefs That Will Affect Care: None marital status: Current Living Situation: Spouse current occupational status: 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 Safe at Home: Yes Childhood Exposure to Second-Hand Smoke: No Dental Care, Regularly: Yes Physical Activity Frequency: 5-6 Times per Week Seatbelt Use: always Sunscreen Use: Yes Assistive Devices: Glasses Review of Systems All systems reviewed & are unremarkable except as noted in HPI & below Physical Exam Constitutional: well developed and well nourished; no acute distress Eyes: PERRL, conjunctivae normal, anicteric sclerae ENMT: external ear and nose normal, oropharynx normal Neck: trachea midline, no thyromegaly Respiratory: normal respiratory effort, lungs clear to auscultation Cardiovascular: RRR, no murmur, no edema Musculoskeletal: Left shoulder: Tenderness coracoid, anterior glenoid, AC joint. Positive cross body test, positive impingement signs. Painful ROM. FF to 150 degrees, abduction to 150 degrees, ER to 70 degrees. Skin: no rashes, warm and dry Neurologic: patellar DTR's 2+ bilat, sensation intact Psychiatric: A+Ox3, euthymic affect Results & Data ([facility]) Diagnostic Findings Left shoulder: Bone on bone GH joint with osteoarthritis AC joint as well. Intact rotator cuff.
[~2021-08-14 06:47] MED LIST changes: +ACETAMINOPHEN 500 MG TAB PO SCH; -ASPI81TA28 PO; -CALC1CHW71 PO; +CeleBREX 200 MG CAP PO SCH; +FAMOTIDINE 20 MG TAB PO SCH; -FEXO1TAB46 PO; -FLUO20CA35 PO; +GABAPENTIN 300 MG CAP PO SCH; -LCTX PO; -LIDOCAINE HCL 2% 2 ML VIAL (20MG/ML) ONE; +LR 15ML/HR IV SCH; +METOCLOPRAMIDE HCL 10 MG TABLET PO SCH; -OMEP40CA41 PO; -POLYSOL4 OP; -PROPOFOL IV EMULSION 10 MG/ML 20 ML VIAL ONE; +TRANEXAMIC ACID 1,000 MG **IV Intra-op IV SCH; +TRANEXAMIC ACID 1,000 MG **IV Pre-op IV SCH; +ceFAZolin 1000MG 1,000 MG/7.5 ML SYR IV SCH; +dexAMETHasone 4 MG TAB PO SCH
[2021-08-14] MEDS ORDERED: BUPIVACAINE 0.5 % 5 MG/1 ML PF 10ML VIAL ONE (07:25)
[2021-08-14] MEDS ORDERED: DEXAMETHASONE SOD INJ 4 MG/ML VIAL ONE (08:13)
[2021-08-14] MEDS ORDERED: fentaNYL citrate 100 MCG/2 ML VIAL ONE (08:13)
[2021-08-14] MEDS ORDERED: SUCCINYLCHOLINE CHLORIDE 20 MG/ML 10 ML VIAL IV ONE (08:13)
[2021-08-14] MEDS ORDERED: ONDANSETRON INJ 2 MG/ML 2 ML VIAL ONE (08:13)
[2021-08-14] MEDS ORDERED: PROPOFOL IV EMULSION 10 MG/ML 20 ML VIAL IV ONE (08:13)
[2021-08-14] MEDS ORDERED: MIDAZOLAM HCL 1 MG/ML 2ML VIAL ONE (08:13)
[2021-08-14] MEDS ORDERED: ROCURONIUM BROMIDE 10 MG/ML 5 ML VIAL IV ONE ×2 (08:14→12:48)
[2021-08-14] MEDS ORDERED: HYDROmorphone INJ 1 MG/ML SYRINGE IV PRN (08:41)
[2021-08-14] MEDS ORDERED: ONDANSETRON INJ 2 MG/ML 2 ML VIAL IV PRN ×2 (08:41→16:05)
[2021-08-14] MEDS ORDERED: fentaNYL citrate 100 MCG/2 ML VIAL IV PRN (08:41)
[2021-08-14] MEDS ORDERED: ATROPINE SULFATE 0.1 MG/ML 10ML SYR IV PRN (08:41)
[2021-08-14] MEDS ORDERED: ePHEDrine sulfate 50 MG/ML AMP IV PRN (08:41)
--- NOTE | 2021-08-14 10:27 | History & Physical Bridge Note ---
Date of Service August 14, 2021 History & Physical Bridge Note I have examined the patient, reviewed the History & Physical and in the interval since the performance of the History & Physical I have noted the following changes of clinical significance: no changes noted
[2021-08-14] MEDS ORDERED: PHENYLEPHRINE 100MCG/ML 5ML SYR ONE (11:23)
[2021-08-14] MEDS ORDERED: EPINEPHrine INJ 1 MG/ML AMP TOP ONE (11:55)
[2021-08-14] MEDS ORDERED: SUGAMMADEX SODIUM 200 MG/2 ML VIAL IV ONE (12:53)
--- NOTE | 2021-08-14 13:41 | Post Operative Brief Note ---
Immediate Post Op Note v1 Date of Surgery August 14, 2021 Pre & Post Diagnosis Operation Date: 08/14/21 09:20 Pre-Op Diagnosis: Left Shoulder Osteoarthritis, Left Shoulder Biceps tenosynovitis Post-Op Diagnosis: Left Shoulder Osteoarthritis, Left Shoulder Biceps tenosynovitis I identified the patient and participated in the time-out.: Yes Procedure Operation Date: 08/14/21 09:20 Actual Procedures p Left Total Shoulder Arthroplasty, Distal Clavical Excision, Biceps Tenodesis(Left) - Manny Mckeon MD Surgeon Manny Mckeon MD Shellac Polisher Lukas MCLEAN Estimated Blood Loss 40 Findings Consistent with Post-Op Diagnosis Specimens Humeral head and distal clavicle Drains Hemovac Drain Anesthesia Type General Regional Complications none Disposition Disposition: Recovery Room Overlapping Procedure I was immediately available: during the entire case.
--- NOTE | 2021-08-14 13:51 | Operative Report ---
Post Operative Report Pre & Post Diagnosis Operation Date: 08/14/21 09:20 Pre-Op Diagnosis: Left Shoulder Osteoarthritis, Left Shoulder Biceps Post-Op Diagnosis: Left Shoulder Osteoarthritis, Left Shoulder Biceps I identified the patient and participated in the time-out.: Yes Procedure Operation Date: 08/14/21 09:20 Actual Procedures p Left Total Shoulder Arthroplasty, Distal Clavical Excision, Biceps Tenodesis(Left) - Manny Mckeon MD Surgeon Manny Mckeon MD Forensic Document Examiner Lukas MCLEAN Estimated Blood Loss 40 Findings Consistent with Post-Op Diagnosis Specimens Humeral head and distal clavicle Drains 2 Hemovac Anesthesia Type General Regional Complications none Disposition Disposition: Recovery Room Indications 71-year-old female with longstanding arthritis her left shoulder with radiographic [id number] glenohumeral joint and also has AC joint osteoarthritis with some calcifications in the AC joint. Description of Procedure Patient was taken to the operating room anesthetized under regional block and general anesthetic. Patient was placed in a 40 degree beachchair position with a foam headrest protective eyewear all extremities padded teds and SCDs were placed. A towel roll was placed on the medial border of the scapula of the left upper extremity. The arm was examined and range of motion demonstrated 45 degrees external rotation 150 degrees forward flexion and 90 degrees abduction. An anterior deltopectoral approach was performed. Longitudinal incision was made in deltopectoral interval. Skin incised sharply and subcutaneous flaps elevated. The deltopectoral interval was identified. The cephalic vein demonstrated normal moderately large appearing vein. The cephalic vein was retracted laterally with the deltoid. The upper centimeter of the pectoralis was released for inferior exposure. Biceps tendon demonstrated chronic tenosynovitis with intact biceps tendon and some widening of the tendon proximally in the joint consistent with chronic tendinopathy. The biceps was tenodesed to the pectoralis tendon using #2 FiberWire [id number] sutures. Proximal biceps was resected. Rotator cuff findings demonstrated intact rotator cuff with minor subacromial bursitis which was resected. The circumflex vessels were tied off with silk ties and divided laterally. The subscapularis muscle fibers were split at the level of circumflex vessels and released off the inferior capsule with a Kitner elevator and then a blunt Hohmann retractor was placed protect the axillary nerve. The rotator interval was released down to the level of the glenoid. The subscapularis tendon was taken down with a transtendinous incision leaving a cuff of tissue for repair on the lesser tuberosity. The humeral head findings demonstrated eburnated bone and inferior osteophytes which were moderate in size. The inferior osteophytes were resected using an artist chisel and rongeur. The inferior capsule was released off the bone subperiosteally using a [place] elevator. A #1 Vicryl traction suture was placed into the free edge of the subscapularis tendon. A Fukuda retractor was placed into the joint. Capsule was released with Zavala scissors down to the glenoid and off of the anterior glenoid to the rotator interval which was released to meet the capsular release creating a 360 degree release of subscapularis tendon. An anterior Bankart retractor was placed. The glenoid and labral findings demonstrated degenerative fraying of the labrum and eburnated bone on the glenoid with majority of the articular cartilage being down the bone with minor amount superior articular cartilage intact. There was a type A wear pattern. An anterior-inferior and posterior inferior capsule release was performed electrocautery on bone and a [place] elevator. The axillary nerve was protected inferiorly with the blunt Hohmann. Attention was taken back to the humeral head. Humeral head was exposed with extension and external rotation. The oscillating saw was used to make an anatomic neck cut removing the articular surface. All the circumferential remaining osteophytes were trimmed with a rongeur. The humerus was sized for a 1 nucleus and a 46 humeral head. The bone was assessed with a thumb press test and there was solid cancellous bone. The guide for the nucleus was placed centrally and then the guidepin was placed. The surface reamer was used followed by the central drill for the nucleus. The trial nucleus was inserted and the cut protector was placed. The humerus was retracted posterior to the glenoid . A Tornier retractor ,Hohmann retractors as well as an anterior Bankart retractor were placed. The glenoid was fully exposed. The Tornier Cortiloc glenoid was used. The small 30 radius size was chosen. The central drill hole was made followed by the reamer for the glenoid followed by widening the central hole for the central post. The guide for the peripheral drill holes was placed and the drill holes were made. The trial reduction performed with stable fixation. The trial removed and the glenoid copiously irrigated with pulsed saline solution. The drill holes were packed with epinephrine-soaked tampons. The [place] G cement was vacuum mixed. The Cortiloc small 30 radius glenoid component was then cemented in position after drying the glenoid after removal of the tampons. Fixation was excellent. All excess cement was cleared. When the cement cured we moved onto removing the cut protector doing a trial reduction with a 46 x 17 millimeter humeral head trial. Stability was assessed and was stable. Soft tissue tension on the subscapularis tendon was satisfactory. The trial components of the humeral head were removed and the 3 drill holes were made in the harder bone in the biceps groove area and transosseous #5 FiberWire sutures were placed. Then the humeral cut surface was reexposed with retractors and after irrigation the size 1 nucleus was impacted leaving it slightly proud until the Tornier simplicity head 46 mm x 17 mm humeral head was placed into the nucleus and then both were impacted into the humerus with a tight press-fit. Implant was assessed and noted to be stable. The humerus was reduced to the glenoid. The stability was verified. The subscapularis tendon was repaired in 2 [id number]-[id number] #2 FiberWire sutures. Lateral row fixation was performed with interrupted [id number] #2 FiberWire sutures and rotator interval was closed with #2 FiberWire sutures. Range of motion demonstrated 150 degrees forward flexion 100 degrees abduction external rotation to 60 degrees without tension on repair. The pectoralis was repaired with miicoh-[id number] #2 FiberWire sutures placing sutures back through the biceps tendon to reinforce the tenodesis. 2 Hemovac drains were placed. The deltopectoral interval was repaired with aiaorw-mi-onzez #1 Vicryl sutures. A transverse incision was made across the acromioclavicular joint. Subperiosteal dissection was performed to expose 1 cm distal clavicle. Findings at the acromioclavicular joint were arthritic changes with osteophytes superiorly and inferiorly with calcifications in the superior joint capsule. Retractors were placed. 1 cm of distal clavicle was resected with an oscillating saw. After irrigation with antibiotic solution the deltotrapezial fascia was repaired with [id number] #2 FiberWire sutures subcutaneous tissues were closed with interrupted 2-0 Vicryl and the skin was closed with anthony. Deltopectoral incision was irrigated and then the subcutaneous tissue was repaired with 2-0 Vicryl sutures and the skin was closed with anthony. Sterile dressings were applied and a sling immobilizer. The patient tolerated the procedure well. Lukas MCLEAN acted as workers compensation claims assistant throughout the procedure. He functioned as workers compensation claims assistant assisting in all aspects of the procedure including patient positioning prepping draping, arm positioning, soft tissue retraction,, instrument management, subcutaneous and skin closure and postop care the patient as well. I attest to the content of the Intraoperative Record and any orders documented therein. Any exceptions are noted below.
--- NOTE | 2021-08-14 14:44 | XRay Report ---
XR shoulder LT min 2V routine HISTORY: 71 years-old Female Post shoulder surgery left shoulder arthroplasty COMPARISON: Chest radiograph 04/02/2021 TECHNIQUE: 3 views of the left shoulder FINDINGS: Satisfactory alignment of the left shoulder arthroplasty. No acute fracture. Status post resection of the distal left clavicle. Expected postoperative soft tissue swelling with deep tissue air and overl wendy skin anthony. Surgical drainage catheter is in place. IMPRESSION: Left shoulder arthroplasty with expected postoperative changes. ACT 112: Negative or not required by law. The above report was generated using voice recognition software. It may contain grammatical, syntax o r spelling errors. Electronically signed by: Omar Perrin M.D. 08/14/2021 2:43 PM
--- NOTE | 2021-08-14 14:56 | Anesthesiology Progress Note ---
Date of Service August 14, 2021 Anesthesia Post Procedure Vital Signs Vital Signs: Temp Pulse Pulse Resp BP Pulse Ox 08/14/21 14:45 36.5 C 72 16 146/85 H 95 08/14/21 14:35 73 16 139/81 96 08/14/21 14:25 73 14 165/81 H 94 08/14/21 14:15 73 17 146/91 H 98 08/14/21 14:05 69 13 155/79 H 100 08/14/21 13:59 36.3 C L 67 14 166/81 H 97 08/14/21 10:50 64 12 159/84 H 99 08/14/21 07:22 36.6 C 64 18 151/78 H 95 Pain Intensity Left Axilla: Pain Intensity: 4 Transfer of Care Handoff Completed per policy Notes Mental Status: alert / awake / arousable and participated in evaluation Patient Amnestic to Procedure: Yes Nausea / Vomiting: adequately controlled Pain: adequately controlled Airway Patency, RR, SpO2: stable & adequate BP & HR: stable & adequate Hydration State: stable & adequate Anesthetic Complications: no major complications apparent and Pt Satisfied with anesthetic care
[2021-08-14] MEDS ORDERED: METOCLOPRAMIDE HCL INJ 5 MG/ML 2 ML VIAL IV PRN (16:05)
[2021-08-14] MEDS ORDERED: HYDROmorphone INJ 0.5 MG/0.5 ML SYR IV PRN (16:05)
[2021-08-14] MEDS ORDERED: MAGNESIUM HYDROXIDE SUSP 30 ML UDC PO PRN (16:05)
[2021-08-14] MEDS ORDERED: ALBUTEROL HFA 8 GM INHALER INH PRN (16:05)
[2021-08-14] MEDS ORDERED: NALOXONE HCL 0.4 MG/1 ML VIAL/CARP IV PRN (16:05)
[2021-08-14] MEDS ORDERED: bisacodyL 10 MG SUPP PR PRN (16:05)
[2021-08-14] MEDS: traMADol HCL 50 MG TABLET PO PRN (17:09)
[2021-08-14] MEDS: SODIUM CHLORIDE 0.9% 1000ML 1,000 ML IV SCH (17:09)
[2021-08-14] MEDS: CALCIUM 600MG + VIT D 400 IU TAB PO SCH (17:09)
--- NOTE | 2021-08-14 19:24 | Hospitalist Progress Note ---
Date of Service August 14, 2021 Assessment & Plan (1) Primary osteoarthritis, left shoulder: Plan: Postop. Per orthopedics. Pain appears to be controlled. (2) Mild cognitive impairment: Plan: Fortunately appears quite cognitively intact at this time with no real signs of delirium/etc. (3) GERD (gastroesophageal reflux disease): Plan: Continue home meds (4) DVT prophylaxis: Plan: Per orthopedics Plan: Medically appears to be stable. We will sign off of active management at this time, available if needed/happy to offer assistance if needed. Admission and Anticipated Discharge Date Admission Date: August 14, 2021 Subjective No complaints. Actually joking a little that she had a birthday and now she is 35. Pain is under good control. No other complaints. Review of Systems Review of Systems: All systems reviewed & are unremarkable except as noted in HPI & below Physical Exam Physical Exam: In general she is awake and alert pleasant no distress. HEENT normocephalic atraumatic mucous membranes moist. Breathing unlabored no accessory muscle use good effort. Skin shows no rashes no pallor or icterus. Left shoulder is dressed her arm is in a sling. Neuro shows cranial nerves II through XII be grossly intact gross motor and sensory intact. Good recent and remote recall, good sense of humor, good conversational chirag. Mental status appears to be intact. Results & Data Results & Data ([facility]) Vital Signs (Past 12 Hours) Vital Signs Temp Pulse Pulse Resp BP Pulse Ox 08/14/21 18:45 97.9 F 93 H 16 131/77 94 08/14/21 17:45 97.7 F 101 H 16 127/61 95 08/14/21 16:45 97.7 F 95 H 16 139/78 95 08/14/21 16:05 97.7 F 68 18 129/86 97 08/14/21 15:35 82 12 158/84 H 94 08/14/21 15:20 73 16 153/76 H 93 08/14/21 15:05 72 15 146/89 H 94 08/14/21 14:55 75 13 143/72 H 95 08/14/21 14:45 97.7 F 72 16 146/85 H 95 08/14/21 14:35 73 16 139/81 96 08/14/21 14:25 73 14 165/81 H 94 08/14/21 14:15 73 17 146/91 H 98 08/14/21 14:05 69 13 155/79 H 100 08/14/21 13:59 97.3 F L 67 14 166/81 H 97 08/14/21 10:50 64 12 159/84 H 99 08/14/21 07:22 97.9 F 64 18 151/78 H 95 PG Care Time/CCT Total # of Minutes Spent Total Time Spent with Patient: Total time spent is greater than 50% in coordination of care (as documented) at patient's floor/unit and/or counseling patient: Coding Level of Care Code 78014 Subseq Hosp Care Lvl 2 Diagnoses Primary osteoarthritis, left shoulder M19.012 Mild cognitive impairment G31.84 GERD (gastroesophageal reflux disease) K21.9 DVT prophylaxis Z29.9
[2021-08-14] MEDS: ceFAZolin 1000MG 1,000 MG/7.5 ML SYR IV SCH (20:22)
[2021-08-14] MEDS: DOCUSATE SODIUM 100 MG CAP PO SCH (20:22)
[2021-08-14] MEDS ORDERED: FLUoxetine HCL 20 MG CAP PO SCH (21:00)
[2021-08-14] MEDS ORDERED: SENNA 8.6 MG TAB PO SCH (21:00)
[2021-08-14] MEDS: ACETAMINOPHEN 500 MG TAB PO SCH (21:27)
[2021-08-15] MEDS: ceFAZolin 1000MG 1,000 MG/7.5 ML SYR IV SCH (02:50)
[2021-08-15] MEDS: SODIUM CHLORIDE 0.9% 1000ML 1,000 ML IV SCH (04:55)
[2021-08-15] MEDS: ACETAMINOPHEN 500 MG TAB PO SCH ×2 (05:48→13:17)
[2021-08-15 07:25] LABS: Basophils # (auto) 0.01 K/uL (0-0.2); Basophils % (auto) 0.1 %; Eosinophils # (auto) 0.01 K/uL (0-0.50); Eosinophils % (auto) 0.1 %; Hematocrit (blood only) 38.2 % (34.1-44.9); Hemoglobin 12.3 g/dl (12.0-16.0); Immature Granulocytes # (auto) 0.03 K/uL (0.00-0.02); Immature Granulocytes % (auto) 0.3 %; Lymphocytes # (auto) 2.14 K/uL (1.2-3.4); Lymphocytes % (auto) 21.5 %; Mean Corpuscular Hemoglobin 29.8 pg (25.0-34.0); Mean Corpuscular Hgb Conc 32.2 g/dL (32.0-36.0); Mean Corpuscular Volume 92.5 fL (80.0-100.0); Mean Platelet Volume 10.2 fL (9.4-12.3); Monocytes # (auto) 0.88 K/uL (0.24-0.82); Monocytes % (auto) 8.9 %; Neutrophils # (auto) 6.87 K/uL (1.4-6.5); Neutrophils % (auto) 69.1 %; Platelet Count 239 K/uL (130-400); RDW Coefficient of Variation 12.7 % (11.5-14.5); RDW Standard Deviation 42.7 fL (36.4-46.3); Red Blood Count 4.13 M/uL (3.93-5.22); White Blood Count 9.94 K/ul (4.8-10.8)
--- NOTE | 2021-08-15 07:27 | Orthopedic Progress Note ---
Date of Service August 15, 2021 Assessment & Plan (1) Primary osteoarthritis, left shoulder: Plan: Postop day 1 left total shoulder arthroplasty, distal clavicle excision -PT/OT: No active motion of shoulder -Pain management as written -DVT prophylaxis: SCDs -A.m. labs are pending -Discharge planning: Plan on discharge home with outpatient PT. Plan on discharge home today. Admission and Anticipated Discharge Date Admission Date: August 14, 2021 Subjective Patient is doing well this morning. No current complaints. Denies chest pain, shortness of breath, nausea/vomiting/diarrhea/dizziness. Review of Systems Review of Systems: All systems reviewed & are unremarkable except as noted in Subjective Physical Exam Physical Exam: Left shoulder: Dressing and sling are in place. Dressing is clean, dry, intact. Fingers are mobile. 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 This is improving. Otherwise distally neurovascular status and sensation intact. Constitutional: WD/WN, vitals as above Results & Data ([facility]) Vital Signs (Past 12 Hours) Vital Signs Temp Pulse Resp BP Pulse Ox 08/15/21 07:19 36.7 C 62 16 147/79 H 97 08/15/21 02:43 36.6 C 74 16 138/64 97 08/14/21 22:03 36.7 C 76 16 131/66 94 08/14/21 20:08 36.4 C L 87 16 143/83 H 94
[2021-08-15 07:41] LABS: BUN Creatinine Ratio 27.5 (10-20); Calcium 8.9 mg/dl (8.5-10.1); Creatinine Clr Calc Pharmacy 73.4 ml/min; Est GFR (African American) 100.1 ml/min; Est GFR (Non-African American) 86.4 ml/min; Potassium 4.1 mmol/L (3.5-5.1)
[2021-08-15] MEDS: DOCUSATE SODIUM 100 MG CAP PO SCH (08:44)
[2021-08-15] MEDS: CALCIUM 600MG + VIT D 400 IU TAB PO SCH (08:44)
[2021-08-15] MEDS ORDERED: PANTOprazole 40 MG TAB PO SCH (09:00)
[2021-08-15] MEDS ORDERED: FEXOFENADINE HCL 180 MG TAB PO SCH (09:00)
[2021-08-15] MEDS ORDERED: NON-FORMULARY MEDICATION (Multivitamin Tablet) PO SCH (09:00)
[2021-08-15] MEDS ORDERED: MULTIVITAMIN TAB PO SCH (09:00)
[2021-08-15] MEDS: traMADol HCL 50 MG TABLET PO PRN (13:17)
--- NOTE | 2021-08-16 07:49 | Discharge Summary ---
Date of Service August 16, 2021 Admission HPI Per Admitting Provider 71 year old female with PMHx significant for GERD, carotid artery disease, depression who presents with ongoing left shoulder pain. Pain interfering with her daily activities. She has failed conservative measures including injections and OTC medications. She would like to proceed with surgery. Patient denies headaches, sweats, fevers, chills, double vision, blurred vision, cough, sore throat, dysphagia, chest pain, sob, wheezing, n/v/d/c, numbness, tingling, fatigue, urinary symptoms, mood disorders. ROS positive for left shoulder pain and stiffness. Admission Exam Per Admitting Provider Constitutional: well developed and well nourished; no acute distress Eyes: PERRL, conjunctivae normal, anicteric sclerae ENMT: external ear and nose normal, oropharynx normal Neck: trachea midline, no thyromegaly Respiratory: normal respiratory effort, lungs clear to auscultation Cardiovascular: RRR, no murmur, no edema Musculoskeletal: Left shoulder: Tenderness coracoid, anterior glenoid, AC joint. Positive cross body test, positive impingement signs. Painful ROM. FF to 150 degrees, abduction to 150 degrees, ER to 70 degrees. Skin: no rashes, warm and dry Neurologic: patellar DTR's 2+ bilat, sensation intact Psychiatric: A+Ox3, euthymic affect Principal Diagnosis Left shoulder osteoarthritis Discharge Exam Left shoulder: Dressing and sling are in place. Dressing is clean, dry, intact. Fingers are mobile. 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 This is improving. Otherwise distally neurovascular status and sensation intact. Constitutional WD/WN, vitals as above Discharge Data Allergies Allergy/AdvReac Type Severity Reaction Status Date / Time codeine AdvReac Mild [place] Verified 08/14/21 07:19 "terrible" NSAIDS (Non-Steroidal AdvReac Mild Stomach Verified 08/14/21 07:19 Anti-Inflamma issues sabrina dressing Allergy Mild Skin Uncoded 08/14/21 07:19 "burnt" Consultations 08/08/21 12:34 Consult Hospitalist Routine Procedures Performed Operation Date: 08/14/21 09:20 Actual Procedures p Left Total Shoulder Arthroplasty, Distal Clavical Excision, Biceps Tenodesis(Left) - Manny Mckeon MD Ordered Studies 08/14/21 05:00 US - OR guided needle placemen Routine Hospital Course (1) Primary osteoarthritis, left shoulder: Postop day 1 left total shoulder arthroplasty, distal clavicle excision -PT/OT: No active motion of shoulder -Pain management as written -DVT prophylaxis: SCDs -A.m. labs are pending -Discharge planning: Plan on discharge home with outpatient PT. Plan on discharge home today. Lab Results 08/14/21 08/15/21 08/15/21 Range/Units 07:01 06:47 06:47 WBC 9.94 (4.8-10.8) K/ul RBC 4.13 (3.93-5.22) M/uL Hgb 12.3 (12.0-16.0) g/dl Hct 38.2 (34.1-44.9) % MCV 92.5 (80.0-100.0) fL MCH 29.8 (25.0-34.0) pg MCHC 32.2 (32.0-36.0) g/dL RDW Std Deviation 42.7 (36.4-46.3) fL RDW Coeff of [place] 12.7 (11.5-14.5) % Plt Count 239 (130-400) K/uL MPV 10.2 (9.4-12.3) fL Immature Gran % (Auto) 0.3 % Neut % (Auto) 69.1 % Lymph % (Auto) 21.5 % [place] % (Auto) 8.9 % Eos % (Auto) 0.1 % Baso % (Auto) 0.1 % Neut # (Auto) 6.87 H (1.4-6.5) K/uL Lymph # (Auto) 2.14 (1.2-3.4) K/uL [place] # (Auto) 0.88 H (0.24-0.82) K/uL Eos # (Auto) 0.01 (0-0.50) K/uL Baso # (Auto) 0.01 (0-0.2) K/uL Immature Gran # (Auto) 0.03 H (0.00-0.02) K/uL Sodium 139 (136-145) mmol/L Potassium 4.1 (3.5-5.1) mmol/L Chloride 105 (98-107) mmol/L Carbon Dioxide 30 (21-32) mmol/L Anion Gap 4 (3-11) BUN 19 (6-23) mg/dl Creatinine 0.69 (0.6-1.2) mg/dl Est Cr Clr Drug Dosing 73.4 ml/min Est GFR ( Amer) 100.1 ml/min Est GFR (Non-Af Amer) 86.4 ml/min BUN/Creatinine Ratio 27.5 H (10-20) Glucose 91 (70-99(Fasting)) mg/dl Calcium 8.9 (8.5-10.1) mg/dl SARS-CoV-2, RNA, NAAT NEGATIVE (NEGATIVE) Total Time Total Time Spent Total Time Spent (In Minutes): 20 Discharge Plan Discharge Items Patient Disposition: Home - Self-Care Reason For Visit: Left Shoulder Osteoarthritis, Left Shoulder Biceps Discharge Diagnosis: Left shoulder osteoarthritis Activity: Per Instructions section Non-emergency contact: Surgeon Call non-emergency contact if: you have any medication questions, your pain is not controlled, your pain is concerning for you, you have a fever, your temperature is above 101, your wound has increased redness and your wound has increased drainage Follow-up/Referrals: Raciel Hector III, CRNP [Primary Care Provider] - 08/21/21 9:20 am Manny Mckeon MD [Surgeon] - 08/29/21 11:30 am Diet: Regular Addtl Attending Provider Instructions: ACTIVITY RECOMMENDATIONS: SELF CARE INSTRUCTIONS AFTER TOTAL SHOULDER ARTHROPLASTY A. You may do daily exercises as taught in physical therapy while in hospital. No lifting with the operative arm. Please schedule your outpatient physical therapy appointment to begin within 2-3 days after leaving the hospital. Specific restrictions will be written on your physical therapy prescription that is provided to you. B. You are to wear your sling/immobilizer at all times EXCEPT when performing your daily exercises, participating in physical therapy and for hygiene purposes. C. You may perform dry, daily dressing changes. Please keep your incision covered. You may shower 48 hours after surgery. Do not apply soap or any ointment/lotions directly over incision. Do not soak incision in bath tub/swimming pool. D. You may use ice as needed to operative shoulder. SPECIAL CARE INSTRUCTIONS: MEDICATION INSTRUCTIONS: *It is recommended you take Aspirin 81mg daily for four weeks post-op. VERY IMPORTANT TO READ AND REVIEW A. There are a few signs you need to watch for after you are home. Call [facility] at [phone] if you experience any of the followin. Increased severe shoulder pain. Some pain is expected especially when you exercise. 2. Increased swelling in you shoulder or arm; pain or swelling in either upper extremity. 3. Any fluid drainage from the incision. 4. Shortness of breath or chest pain. B. Please call [facility] at [phone] if you have any questions or concerns about your operation or recovery. C. Call your physician if: 1. Temperature is greater than 101 degrees (F). 2. Pain is not relieved by prescribed pain medications. 3. Increase drainage or redness from incision. 4. Unanswered questions or concerns. FOLLOW UP VISIT: Please call [facility] at [phone] to schedule a follow up appointment with Dr. Mckeon or his PA in 12-14 days from your surgery date. Stand-Alone Forms: My [facility] [employer], Smoking Cessation Medications and DC Order Prescriptions: New acetaminophen [Tylenol Extra Strength] 500 mg Tablet 1,000 mg PO Q8 Qty: 60 RF: 0 tramadol 50 mg Tablet 50 - 100 mg PO .q4h-6h MDD 6 PRN (Reason: pain) Qty: 30 RF: 0 Continued albuterol sulfate 90 mcg/actuation HFA aerosol inhaler 2 puff Inhalation Q6H PRN (Reason: Shortness Of Breath Or Wheezing) Qty: 18 RF: 2 multivitamin Tablet 1 tab PO QAM RF: 0 fexofenadine [Allergy Relief (fexofenadine)] 180 mg Tablet 180 mg PO QAM RF: 0 calcium carbonate-vitamin D3 [Calcium 500 + D] 500 mg(1,250mg) -200 unit Tablet 2 tab PO QAM RF: 0 fluoxetine [Prozac] 20 mg capsule 20 mg PO QPM RF: 0 omeprazole 1 tab PO DAILY RF: 0 Discharge Orders: Discharge Order (Routine); Ordered 08/15/21 Ordered By: Delonte Hope Admission Data Admit Date/Time: 08/14/21 14:01 Attending Provider: Manny Mckeon Admit Provider: Manny Mckeon Primary Care Provider: Rcaiel Hector III Other Providers: Siuta,Paresh R Other Interventions: Discharge Summary Assessment (RN) Last Done: 08/15/21 12:18
== END 2021-08-15 15:02 | disposition home or self-care (01) ==
LOC: ASU 06:47 → INTOOBSV 14:01 → PACUINP 14:01 → 3W 15:50

== ENCOUNTER 2022-11-26 10:45 | Observation (INO) ==
--- NOTE | 2022-10-24 14:52 | PAT Medication Instructions ---
Medication Instructions Date of Service October 24, 2022 Home Medications Medication Instructions Recorded amoxicillin 500 mg capsule 2,000 mg PO DIRECTED PRN 1 HR. 06/17/22 PRIOR TO DENTAL APPT. #4 caps triamcinolone acetonide 0.1 % 1 applic topical BID PRN rash #80 10/21/22 topical cream grams calcium carbonate 500 mg-vitamin D3 5 mcg (200 unit) tablet (Calcium 500 + D) 1 tab PO QAM fexofenadine 180 mg tablet (Allergy Relief (fexofenadine)) 180 mg PO QAM multivitamin 1 tab PO QAM acetaminophen 500 mg tablet (Tylenol Extra Strength) 1,000 mg PO Q8 PRN albuterol sulfate 90 mcg/actuation aerosol inhaler (Ventolin HFA) 2 puff inhal ation Q6H PRN amoxicillin 500 mg capsule 2,000 mg PO DIRECTED PRN 1 HR. PRIOR TO DENTAL APPT. triamcinolone acetonide 0.1 % topical cream 1 applic topical BID PRN fluoxetine 40 mg capsule 40 mg PO QPM omeprazole 40 mg capsule,delayed release 40 mg PO QAM Continue as directed amoxicillin 500 mg capsule 2,000 mg PO DIRECTED PRN 1 HR. PRIOR TO DENTAL APPT. STOP taking 24 hours before surgery triamcinolone acetonide 0.1 % topical cream 1 applic topical BID PRN DO NOT take the morning of surgery calcium carbonate 500 mg-vitamin D3 5 mcg (200 unit) tablet (Calcium 500 + D) 1 tab PO QAM fexofenadine 180 mg tablet (Allergy Relief (fexofenadine)) 180 mg PO QAM multivitamin 1 tab PO QAM Take morning of surgery With a small sip of water, OTHERWISE NOTHING TO EAT OR DRINK AFTER MIDNIGHT: acetaminophen 500 mg tablet (Tylenol Extra Strength) 1,000 mg PO Q8 PRN(if needed) albuterol sulfate 90 mcg/actuation aerosol inhaler (Ventolin HFA) 2 puff inhalation Q6H PRN(if needed) omeprazole 40 mg capsule,delayed release 40 mg PO QAM Take evening before surgery acetaminophen 500 mg tablet (Tylenol Extra Strength) 1,000 mg PO Q8 PRN(if needed) albuterol sulfate 90 mcg/actuation aerosol inhaler (Ventolin HFA) 2 puff inhalation Q6H PRN(if needed) fluoxetine 40 mg capsule 40 mg PO QPM Other Notes If you have any questions please call us at [phone] or [phone] or [phone] or [phone]
--- NOTE | 2022-10-31 12:07 | Anesthesiology Consultation ---
Date of Service October 31, 2022 Assessment & Plan (1) Encounter for pre-operative examination: - difficult intubation: L2-S1 discectomy and fusion (02/16/17): Grade view 1 via elective glidescope #3 (limited cervical ROM s/p cervical spine surgeries), ETT 7 at [facility]. - Outpatient joint assessment: Patient is currently scheduled for inpatient pathway. If re-evaluated and patient/surgeon requests outpatient pathway, patient is not recommended candidate for outpatient joint program from anesthesia standpoint. Chart Review Chart Review: Acceptable Risk for Surgery and Patient seen in Pre Admission Testing Teaching & Discussion Pre-Anesthesia Teaching/Discussion Notes: Instructed NPO after midnight before surgery, except medications with 15 cc of water. Medication instructions p rovided according to the PAT guidelines. History Surgery Operation Date: 11/26/22 07:15 Proposed Procedures p Right Total Knee Arthroplasty - Manny Mckeon MD Height/Weight Height: 5 ft 3 in Weight: 73.5 kg Allergies Allergy/AdvReac Type Severity Reaction Status Date / Time codeine AdvReac Intermediate [place] Verified 10/24/22 09:10 "terrible" NSAIDS (Non-Steroidal AdvReac Intermediate Stomach Verified 10/24/22 09:10 Anti-Inflamma issues sabrina dressing Allergy Mild Skin Uncoded 10/24/22 09:10 "burnt" Medications Home Medications Medication Instructions Recorded Confirmed Last Taken calcium carbonate 500 mg-vitamin 1 tab PO QAM 10/26/20 10/24/22 04/30/22 D3 5 mcg (200 unit) tablet (Calcium 500 + D) fexofenadine 180 mg tablet 180 mg PO QAM 10/26/20 10/24/22 04/30/22 (Allergy Relief (fexofenadine)) multivitamin 1 tab PO QAM 10/26/20 10/24/22 04/30/22 acetaminophen 500 mg tablet 1,000 mg PO Q8 PRN Pain 04/30/22 10/24/22 Unknown (Tylenol Extra Strength) albuterol sulfate 90 mcg/actuation 2 puff inhalation Q6H PRN 04/30/22 10/24/22 Unknown aerosol inhaler (Ventolin HFA) Shortness Of Breath Or Wheezing amoxicillin 500 mg capsule 2,000 mg PO DIRECTED PRN 1 HR. 06/17/22 10/24/22 Unknown PRIOR TO DENTAL APPT. #4 caps triamcinolone acetonide 0.1 % 1 applic topical BID PRN rash #80 10/21/22 10/24/22 Unknown topical cream grams fluoxetine 40 mg capsule 40 mg PO QPM 10/24/22 10/24/22 Unknown omeprazole 40 mg capsule,delayed 40 mg PO QAM 10/24/22 10/24/22 Unknown release Past Medical History Medical History (Updated 10/31/22 @ 12:21 by Deandra Huynh PA-C) Carotid artery plaque no significant stenosis on 04/2022 neck CTA Depression Difficult airway for intubation L2-S1 discectomy and fusion (02/16/17): Grade view 1 via elective glidescope #3 (limited cervical ROM), ETT 7 at [facility] GERD (gastroesophageal reflux disease) controlled, stable per pt History of skin cancer yrs ago, left cheek, s/p intervention History of uterine leiomyoma HTN (hypertension) controlled, stable per pt Lumbosacral stenosis with neurogenic claudication Mild cognitive impairment Palpitations pt denies Schatzki's ring of distal esophagus Seasonal allergies Reason for inhaler Temporomandibular joint disorder Right side clicking, no locking Patient denies h/o stroke, seizures, heart attack, heart failure, DM, blood sea ts/DVTs or blood transfusions. Exercise / Class Metabolic Activity III < 4 Walking/Shop/Light housework (denies chest discomfort or shortness of breath with usual activities, lives in one floor home) Past Family History Family History Father Family history of heart disease Myocardial infarction Brother Prostate cancer Asthma Mother Stomach cancer Other No family history of adverse response to anesthesia No pertinent family history in first degree relatives Denies family history of Ovarian cancer Breast cancer Colorectal cancer Past Surgical History Surgical History History of colonoscopy History of esophagogastroduodenoscopy (EGD) Multiple (most recent 11/21/20) History of lumpectomy RT (BENIGN) History of spinal fusion L2-S1 discectomy and fusion (02/16/17): Grade view 1 via elective glidescope #3 (limited cervical ROM), ETT 7 at [facility] History of tonsillectomy History of total replacement of left shoulder joint 08/14/21 @ [facility] 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 ([facility] Ja) History of total shoulder replacement RIGHT History of tubal ligation History of umbilical hernia repair S/P shoulder replacement left Status post cervical arthrodesis x2 Past Anesthesia History No Hx of Anesthesia Complications and No Family Hx of Anesthesia Complications History of PONV No Hx of PONV and No Hx of Motion Sickness Social History Smoking Status: Never smoker Do You Dip or Chew Tobacco: No Hx Alcohol Use: Yes ("alex") Alcohol type: other alcohol intake frequency: a few times a month Hx Substance Use: No substance use type: does not use Review of Systems Snoring, denies witnessed apneas. Patient denies chest pain, shortness of breath, dyspnea on exertion, fever, chills, cough, wheezing, or palpitations. Physical Exam Vital Signs Vitals BP 123/74 P 59 TEMP 98 SP02 97% on RA RESP 17 Physical Patient resting comfortably in chair in no acute distress, alert and oriented, responding appropriately throughout visit Full cervical extension range of motion without pain TMD < 3 finger breadths Mallampati Score 3 Dentition: two caps, denies chipped or loose teeth, crowns, implants or bridges Lungs: normal respiratory effort. Good air movement, clear throughout to auscultation, no adventitious breath sounds Cardiac: regular rate and rhythm, no murmurs noted Carotid arteries: negative bruit bilat Lab Results Anesthesia Preop Results Results Anesthesia Widget: WBC 8.51 K/ul (4.8-10.8) 10/31/22 Hgb 13.8 g/dl (12.0-16.0) 10/31/22 Hct 41.1 % (37.0-47.0) 10/31/22 Plt 238 K/uL (130-400) 10/31/22 Na 139 mmol/L (136-145) 10/31/22 K 3.9 mmol/L (3.5-5.1) 10/31/22 Cl 104 mmol/L (98-107) 10/31/22 CO2 28 mmol/L (21-32) 10/31/22 BUN 35 mg/dl (6-23) H 10/31/22 Creat 0.97 mg/dl (0.6-1.2) 10/31/22 Glucose Level 92 mg/dl (70-99(Fasting)) 10/31/22 PT 10.9 Seconds (9.0-12.0) 10/31/22 PTT 25.6 Seconds (21.0-31.0) 10/31/22 INR 1.0 (0.9-1.1) 10/31/22 Urine Color Dark Yellow 10/31/22 Urine Appearance Clear (Clear) 10/31/22 Urine pH 5.5 (4.5-7.5) 10/31/22 Urine Specific [place] 1.026 (1.000-1.030) 10/31/22 Urine Protein Negative (Negative) 10/31/22 Urine Glucose (UA) Negative (Negative) 10/31/22 Urine Ketones Trace (Negative) H 10/31/22 Urine Blood Negative (Negative) 10/31/22 Urine Nitrite Negative (Negative) 10/31/22 Urine Bilirubin 1+ (Negative) H 10/31/22 Urine Urobilinogen Negative (Negative) 10/31/22 Urine Leukocyte Esterase 1+ (Negative) H 10/31/22 Urine WBC (Auto) 1-5 /hpf (0-5) 10/31/22 Urine RBC (Auto) 0-4 /hpf (0-4) 10/31/22 Urine Hyaline Casts (Auto) 1-5 /lpf (0-5) 10/31/22 Urine Epithelial Cells (Auto) >30 /lpf (0-5) H 10/31/22 Urine Bacteria (Auto) Negative (Negative) 10/31/22 Blood Type O Positive 10/31/22 Antibody Screen NEGATIVE 10/31/22 Testing Electrocardiogram Date: 10/31/22 Sinus rhythm with PACs, rate 60 bpm Chest X-Ray Date: 10/31/22 No acute cardiopulmonary findings Other Testing Head and neck CTA 04/30/22 Negative [address] neck. Negative CT angiogram of the head. Head CT 04/30/22 No acute intracranial hemorrhage, midline shift, or mass effect.
--- NOTE | 2022-11-25 08:35 | History & Physical Report ---
Date of Service November 25, 2022 Assessment & Plan (1) Primary osteoarthritis of right knee: Plan: Treatment options discussed with the patient and they wish to proceed with surgical intervention. Risks, benefits and alternatives to surgery including but not limited to infection, DVT, pain, stiffness, need for revision surgery, damage to blood vessels, damage to nerves, PE, , were discussed with the patient and they wish to proceed. Plan for right total knee arthroplasty scheduled for November 26 at [facility] with Dr. Mckeon. Plan on outpatient physical therapy postop. Plan on aspirin 81 mg twice daily postop for DVT prophylaxis. All questions answered. Patient will follow-up postoperatively. History of Present Illness Chief Complaint: Right knee pain Primary Care Provider: Raciel Hector, III, SILVER DESIGNER 72 year old female with PMHx significant for GERD, carotid artery disease, hypertension, depression who presents with ongoing right knee pain. Her pain is interfering with her daily activities. She has failed conservative measures including viscosupplementation and steroid injections as well as anti- inflammatories. She would like to proceed with surgical intervention. Patient denies headaches, sweats, fevers, chills, double vision, blurred vision, cough, sore throat, dysphagia, chest pain, sob, wheezing, n/v/d/c, numbness, tingling, fatigue, urinary symptoms, mood disorders. ROS positive for right knee pain and stiffness. Allergies Allergy/AdvReac Type Severity Reaction Status Date / Time codeine AdvReac Intermediate [place] Verified 10/24/22 09:10 "terrible" NSAIDS (Non-Steroidal AdvReac Intermediate Stomach Verified 10/24/22 09:10 Anti-Inflamma issues sabrina dressing Allergy Mild Skin Uncoded 10/24/22 09:10 "burnt" Home Medications Medication Instructions Recorded Confirmed Type calcium carbonate 500 mg-vitamin 1 tab PO QAM 10/26/20 10/24/22 History D3 5 mcg (200 unit) tablet (Calcium 500 + D) fexofenadine 180 mg tablet 180 mg PO QAM 10/26/20 10/24/22 History (Allergy Relief (fexofenadine)) multivitamin 1 tab PO QAM 10/26/20 10/24/22 History acetaminophen 500 mg tablet 1,000 mg PO Q8 PRN Pain 04/30/22 10/24/22 History (Tylenol Extra Strength) albuterol sulfate 90 mcg/actuation 2 puff inhalation Q6H PRN 04/30/22 10/24/22 History aerosol inhaler (Ventolin HFA) Shortness Of Breath Or Wheezing amoxicillin 500 mg capsule 2,000 mg PO DIRECTED PRN 1 HR. 06/17/22 10/24/22 Rx PRIOR TO DENTAL APPT. #4 caps triamcinolone acetonide 0.1 % 1 applic topical BID PRN rash #80 10/21/22 10/24/22 Rx topical cream grams fluoxetine 40 mg capsule 40 mg PO QPM 10/24/22 10/24/22 History omeprazole 40 mg capsule,delayed 40 mg PO QAM 10/24/22 10/24/22 History release Past Med/Surg History Medical History (Updated 11/25/22 @ 08:36 by Delonte Hope PA-C) Carotid artery plaque no significant stenosis on 04/2022 neck CTA Depression Difficult airway for intubation L2-S1 discectomy and fusion (02/16/17): Grade view 1 via elective glidescope #3 (limited cervical ROM), ETT 7 at [facility] GERD (gastroesophageal reflux disease) controlled, stable per pt History of skin cancer yrs ago, left cheek, s/p intervention History of uterine leiomyoma HTN (hypertension) controlled, stable per pt Lumbosacral stenosis with neurogenic claudication Mild cognitive impairment Palpitations pt denies Schatzki's ring of distal esophagus Seasonal allergies Reason for inhaler Temporomandibular joint disorder Right side clicking, no locking Surgical History History of colonoscopy History of esophagogastroduodenoscopy (EGD) Multiple (most recent 11/21/20) History of lumpectomy RT (BENIGN) History of spinal fusion L2-S1 discectomy and fusion (02/16/17): Grade view 1 via elective glidescope #3 (limited cervical ROM), ETT 7 at [facility] History of tonsillectomy History of total replacement of left shoulder joint 08/14/21 @ [facility] 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 ([facility]) History of total shoulder replacement RIGHT History of tubal ligation History of umbilical hernia repair S/P shoulder replacement left Status post cervical arthrodesis x2 Family History Father Family history of heart disease Myocardial infarction Brother Prostate cancer Asthma Mother Stomach cancer Other No family history of adverse response to anesthesia No pertinent family history in first degree relatives Denies family history of Ovarian cancer Breast cancer Colorectal cancer Social History Smoking Status: Never smoker Second Hand Exposure: No; Do You Dip or Chew Tobacco: No; Hx Alcohol Use: Yes ("seltzers") Alcohol type: other Alcohol Intake Frequency: Monthly or Less Hx Substance Use: No Preferred Language: Zambian Communication Ability: Effective Visual Impairment: No Limitations Hearing Ability: Normal Ic Designer Custom Required: No Beliefs That Will Affect Care: None marital status: Current Living Situation: Spouse current occupational status: retired current occupation: How many Children do You have: 1 Feels Safe at Home: Yes Childhood Exposure to Second-Hand Smoke: No Diet: regular Dental Care, Regularly: Yes Physical Activity Frequency: 1-2 Times per Week Seatbelt Use: always Sunscreen Use: Yes Assistive Devices: Glasses Review of Systems All systems reviewed & are unremarkable except as noted in HPI & below Physical Exam Constitutional: well developed and well nourished; no acute distress Eyes: PERRL, conjunctivae normal, anicteric sclerae ENMT: external ear and nose normal, oropharynx normal Neck: trachea midline, no thyromegaly Respiratory: normal respiratory effort, lungs clear to auscultation Cardiovascular: RRR, no murmur, no edema Musculoskeletal: Right knee: Mild effusion. Tenderness medial joint line. Mild varus alignment. Stable to valgus and varus stress test. Range of motion is 0 to 130 degrees. Skin: no rashes, warm and dry Neurologic: patellar DTR's 2+ bilat, sensation intact Psychiatric: A+Ox3, euthymic affect Results & Data Diagnostic Findings Right knee radiographs demonstrate tricompartmental arthritic changes with advanced joint space in the medial compartment. There is periarticular osteophytes.
[~2022-11-26 10:45] MED LIST changes: +BUPIVACAINE 0.5 % 5 MG/1 ML PF 10ML VIAL ONE; -LR 15ML/HR IV SCH; +LR 500ML BOLUS, THEN 15ML/HR IV SCH; +LR 60ML/HR IV SCH; +ROPIVACAINE 0.5% 5 MG/ML 30 ML VIAL ONE; +ROPIVACAINE 0.5% HCL/PF 150 MG, BUPIVACAINE 0.75% MPF 20 ML, EPINEPHrine 30MG/30ML (OR ... INSTIL SCH; -ceFAZolin 1000MG 1,000 MG/7.5 ML SYR IV SCH; +ceFAZolin 2000MG 2,000 MG/15 ML SYR IV SCH
[2022-11-26] MEDS ORDERED: MIDAZOLAM HCL 1 MG/ML 2ML VIAL ONE (12:22)
[2022-11-26] MEDS ORDERED: fentaNYL citrate PF 100 MCG/2 ML VIAL ONE (12:22)
[2022-11-26] MEDS ORDERED: LIDOCAINE 2% 2 ML VIAL/AMP(20MG/ML) INFIL ONE (12:22)
[2022-11-26] MEDS ORDERED: PROPOFOL IV EMULSION 10 MG/ML 20 ML VIAL IV ONE ×8 (12:22→12:34)
[2022-11-26] MEDS ORDERED: ONDANSETRON INJ 2 MG/ML 2 ML VIAL ONE (12:23)
--- NOTE | 2022-11-26 13:07 | History & Physical Bridge Note ---
Date of Service November 26, 2022 History & Physical Bridge Note I have examined the patient, reviewed the History & Physical and in the interval since the performance of the History & Physical I have noted the following changes of clinical significance: no changes noted
[2022-11-26] MEDS ORDERED: ORTHO JOINT ANESTHETIC ONE (13:18)
--- NOTE | 2022-11-26 15:44 | Operative Report ---
Post Operative Report Pre & Post Diagnosis Operation Date: 11/26/22 12:15 Pre-Op Diagnosis: Right Knee Osteoarthritis Post-Op Diagnosis: Right Knee Osteoarthritis I identified the patient and participated in the time-out.: Yes Procedure Operation Date: 11/26/22 12:15 Actual Procedures p Right Total Knee Arthroplasty(Right) - Manny Mckeon MD Surgeon Manny Mckeon MD Crop Specialist Delonte MCLEAN Estimated Blood Loss 5 Findings Consistent with Post-Op Diagnosis Specimens bone cuts Drains 2 Hemovac Anesthesia Type MAC Spinal Regional Complications none Disposition Disposition: Recovery Room Indications 72 female with chronic bilateral knee pain with right knee as failed conservative management. MRI demonstrates medial extrusion of her meniscus with the root partial detachment type tear with attenuation of the root attachment and bone edema medial tibial [id number] on flexion views and medial compartment. Description of Procedure The patient was taken to the operating room and anesthetized under Spinal MAC regional block anesthesia. Patient was placed supine on the the operating table. A pneumatic tourniquet was placed about the Right upper thigh. The knee exam demonstrated full range of motion no instability varus alignment. The involved leg was elevated exsanguinated with Esmarch bandage and the pneumatic tourniquet was raised to 325 millimeters mercury. A longitudinal incision was made across the anterior knee. Skin flaps were elevated. An incision was made into the medial retinaculum and extended up into the mid third of the quadriceps tendon and extended down to the tibial tubercle. Intra- articular findings demonstrated tricompartmental osteoarthritis mainly medial compartment patellofemoral joint with grade 4 osteoarthritis medial compartment with attenuation of the root attachment medial meniscus with medial extrusion of the meniscus. The knee was exposed by excising cruciate ligaments and menisci. The infrapatellar fat pad was resected. The fat pad over the anterior femur at the upper aspect of the articular surface was resected for placement of the component in that area. A subperiosteal peel lateral release was performed around the patella. The Gunter [employer] Nephew journey 2.0 posterior stabilized total knee arthroplasty system was utilized for the procedure. The custom femoral cutting guide was pinned in position. The distal femoral cut was made. The size 5, 5 in 1 cutting block was placed. The anterior posterior and chamfer cuts were made. The knee was extended and a free hand cut technique was performed to the patella. The patella width was measured and the width was reproduced using a 29 symmetrical patella component. 3 drill holes are made for the patella component pegs. The tibia was then subluxed. The custom tibial cutting block was pinned in position and the proximal tibial cut was made with the oscillating saw. Flexion and extension gaps were balanced. no releases were required. The size 3 tibial trial was externally rotated in line with the tibial tubercle and pinned in position. The punch for the stem was used. The femoral trial was inserted and centered the notch cutting devices were used and the collet was placed. Tibial trials were used for the insert. The size 12 posterior stabilized trial gave balanced ligaments through full range of motion. Patella tracking was assessed with range of motion. The patella tracked centrally. The trials were removed. The Orthomix anesthetic cocktail was injected per protocol. The cut bone surfaces and soft tissue were copiously irrigated with pulsatile lavage saline solution. The final components were cemented with Refobacin cement. The final components were Size right 5 Gunter [employer] Nephew journey 2.0 femoral component, 3 right tibial component, 12 right posterior stabilized tibial polyethylene and a 29 mm symmetrical patella. After the cement cured, the Betadine soak was used for 3 minutes. The knee was then copiously irrigated with pulsatile lavage saline solution. 2 drains were brought out laterally connected to Hemovac. The quadriceps tendon and medial retinaculum were closed with interrupted [id number] #1 Vicryl sutures. The knee was taken through full range of motion and repair was secure. Knee range of motion was 0 through 130 degrees. the subcutaneous tissues were closed with 2-0 Vicryl sutures. The skin was closed with Dong. A Standard sterile dressing was applied. compressive bandage placed an Kei wrap from the foot to t he thigh. The tourniquet was let down and the patient had good capillary refill to the extremity. The patient tolerated the procedure well. My physician licensed physical therapy assistant Lukas MCLEAN participated as janitorial assistant and was integral part in all aspects of the procedure including prepping, draping, leg positioning, soft tissue retraction, instrument management and assisted in the closure , dressings application and will participate in postoperative care the patient. I attest to the content of the Intraoperative Record and any orders documented therein. Any exceptions are noted below.
--- NOTE | 2022-11-26 16:33 | Anesthesiology Progress Note ---
Date of Service November 26, 2022 Anesthesia Post Procedure Vital Signs Vital Signs: Temp Pulse Pulse Resp BP Pulse Ox O2 Del Method 11/26/22 16:30 36.6 C 61 16 134/78 94 Room Air 11/26/22 16:20 66 16 96/73 L 95 Room Air 11/26/22 16:10 62 16 130/65 95 Room Air 11/26/22 16:00 62 15 126/67 98 Oxymask 11/26/22 15:53 37.1 C 73 18 124/61 96 Oxymask 11/26/22 11:33 36.7 C 67 20 145/68 H 96 Room Air O2 Flow Rate 11/26/22 16:30 11/26/22 16:20 11/26/22 16:10 11/26/22 16:00 5 11/26/22 15:53 5 11/26/22 11:33 Pain Intensity Lower Back: Pain Intensity: 8 Transfer of Care Handoff Completed per policy Notes Mental Status: alert / awake / arousable Patient Amnestic to Procedure: Yes Nausea / Vomiting: adequately controlled Pain: adequately controlled Airway Patency, RR, SpO2: stable & adequate BP & HR: stable & adequate Hydration State: stable & adequate Neuraxial Anesthesia: was administered and sensory block is resolving Anesthetic Complications: no major complications apparent
[2022-11-26] MEDS ORDERED: HYDROmorphone INJ 0.5 MG/0.5 ML SYR IV PRN (17:44)
[2022-11-26] MEDS ORDERED: METOCLOPRAMIDE HCL INJ 5 MG/ML 2 ML VIAL IV PRN (17:44)
[2022-11-26] MEDS ORDERED: bisacodyL 10 MG SUPP PR PRN (17:44)
[2022-11-26] MEDS ORDERED: MAGNESIUM HYDROXIDE SUSP 30 ML UDC PO PRN (17:44)
[2022-11-26] MEDS ORDERED: ALBUTEROL HFA 8 GM INHALER INH PRN (17:44)
[2022-11-26] MEDS ORDERED: NALOXONE HCL 0.4 MG/1 ML VIAL/CARP IV PRN (17:44)
[2022-11-26] MEDS ORDERED: ONDANSETRON INJ 2 MG/ML 2 ML VIAL IV PRN (17:44)
[2022-11-26] MEDS ORDERED: traMADol HCL 50 MG TABLET PO PRN (17:44)
[2022-11-26] MEDS: SODIUM CHLORIDE 0.9% 1,000 ML IV SCH (18:21)
--- NOTE | 2022-11-26 18:25 | XRay Report ---
TWO VIEWS RIGHT KNEE CLINICAL HISTORY: Postoperative examination. FINDINGS: AP and crosstable lateral portable views of the right knee are obtained. A right knee arthr oplasty is in near anatomic alignment. There has been undersurface remodeling of the patella. No acut e fracture is seen. There are expected postoperative changes around the knee including skin clips, a surgical drain, soft tissue edema, and subcutaneous gas. IMPRESSION: Expected postoperative changes status post right knee arthroplasty. No acute fracture is seen. ACT 112: Negative or not required by law. Electronically signed by: Casey Cheema M.D. 11/26/2022 6:24 PM
[2022-11-26] MEDS: ASPIRIN 81 MG ECTAB PO SCH (20:19)
[2022-11-26] MEDS: DOCUSATE SODIUM 100 MG CAP PO SCH (20:19)
[2022-11-26] MEDS ORDERED: FLUoxetine HCL 20 MG CAP PO SCH (21:00)
[2022-11-26] MEDS ORDERED: SENNA 8.6 MG TAB PO SCH (21:00)
[2022-11-26] MEDS: ceFAZolin 2000MG 2,000 MG/15 ML SYR IV SCH (21:46)
[2022-11-26] MEDS: ACETAMINOPHEN 500 MG TAB PO SCH (22:46)
[2022-11-27] MEDS: SODIUM CHLORIDE 0.9% 1,000 ML IV SCH (04:51)
[2022-11-27] MEDS: ceFAZolin 2000MG 2,000 MG/15 ML SYR IV SCH (05:57)
[2022-11-27] MEDS: ACETAMINOPHEN 500 MG TAB PO SCH (05:57)
[2022-11-27 06:44] LABS: Hematocrit (blood only) 37.4 % (37.0-47.0); Hemoglobin 12.5 g/dl (12.0-16.0); Mean Corpuscular Hemoglobin 32.6 pg (25.0-34.0); Mean Corpuscular Hgb Conc 33.4 g/dL (32.0-36.0); Mean Corpuscular Volume 97.7 fL (80.0-100.0); Mean Platelet Volume 9.9 fL (9.4-12.4); Platelet Count 220 K/uL (130-400); RDW Coefficient of Variation 11.9 % (11.5-14.5); RDW Standard Deviation 42.6 fL (36.4-46.3); Red Blood Count 3.83 M/uL (4.20-5.40); White Blood Count 9.53 K/ul (4.8-10.8)
[2022-11-27 07:13] LABS: BUN Creatinine Ratio 28.2 (10-20); Calcium 8.3 mg/dl (8.6-10.3); Creatinine Clr Calc Pharmacy 31.4 ml/min; Est GFR (African American) 97.3 ml/min; Est GFR (Non-African American) 83.9 ml/min; Potassium 4.4 mmol/L (3.5-5.1)
--- NOTE | 2022-11-27 08:08 | Orthopedic Progress Note ---
Date of Service November 27, 2022 Assessment & Plan (1) Primary osteoarthritis of right knee: Plan: Postop day #1 right total knee arthroplasty -PT/OT -Pain management as written -DVT prophylaxis: SCDs, teds, aspirin 81 mg twice daily -AM labs: Hemoglobin 12.5 from 13.8 preop. Acute blood loss due to surgical loss versus dilutional. Patient is asymptomatic. -Discharge planning: Plan on discharge home today with plans on outpatient therapy. Admission and Anticipated Discharge Date Admission Date: November 26, 2022 Subjective Patient is resting in bed comfortably. She feels well this morning. Minimal pain currently. No current complaints. Denies chest pain, shortness of breath, nausea/vomiting/diarrhea, headaches or dizziness. Review of Systems Review of Systems: All systems reviewed & are unremarkable except as noted in Subjective Physical Exam Physical Exam: Right knee: Dressing is clean, dry, intact. Toes are mobile with good dorsiflexion. No calf tenderness. Patient is able to do a straight leg raise. Distally neurovascular status and sensation is grossly intact. Results & Data Vital Signs (Past 12 Hours) Vital Signs Temp Pulse Pulse Resp BP Pulse Ox O2 Del Method 11/27/22 07:24 36.4 C L 54 L 18 132/73 99 Room Air 11/27/22 02:59 36.4 C L 62 16 123/67 95 Room Air 11/26/22 23:13 36.5 C 66 16 119/57 L 95 Room Air 11/26/22 20:10 36.3 C L 71 16 121/68 92 Room Air Laboratory Results Lab Results 11/27/22 11/27/22 Range/Units 05:52 05:52 WBC 9.53 (4.8-10.8) K/ul RBC 3.83 L (4.20-5.40) M/uL Hgb 12.5 (12.0-16.0) g/dl Hct 37.4 (37.0-47.0) % MCV 97.7 (80.0-100.0) fL MCH 32.6 (25.0-34.0) pg MCHC 33.4 (32.0-36.0) g/dL RDW Std Deviation 42.6 (36.4-46.3) fL RDW Coeff of Ferny 11.9 (11.5-14.5) % Plt Count 220 (130-400) K/uL MPV 9.9 (9.4-12.4) fL Sodium 139 (136-145) mmol/L Potassium 4.4 (3.5-5.1) mmol/L Chloride 108 H (98-107) mmol/L Carbon Dioxide 29 (21-32) mmol/L Anion Gap 2 L (3-11) BUN 20 (6-23) mg/dl Creatinine 0.71 (0.6-1.2) mg/dl Est Cr Clr Drug Dosing 31.4 ml/min Est GFR ( Amer) 97.3 ml/min Est GFR (Non-Af Amer) 83.9 ml/min BUN/Creatinine Ratio 28.2 H (10-20) Glucose 122 H (70-99(Fasting)) mg/dl Calcium 8.3 L (8.6-10.3) mg/dl
[2022-11-27] MEDS: DOCUSATE SODIUM 100 MG CAP PO SCH (08:37)
[2022-11-27] MEDS: ASPIRIN 81 MG ECTAB PO SCH (08:37)
[2022-11-27] MEDS ORDERED: CALCIUM 600MG + VIT D 400 IU TAB PO SCH (09:00)
[2022-11-27] MEDS ORDERED: PANTOprazole 40 MG TAB PO SCH (09:00)
[2022-11-27] MEDS ORDERED: MULTIVITAMIN TAB PO SCH (09:00)
[2022-11-27] MEDS ORDERED: NON-FORMULARY MEDICATION (Multivitamin Tablet) PO SCH (09:00)
[2022-11-27] MEDS ORDERED: FEXOFENADINE HCL 180 MG TAB PO SCH (09:00)
--- NOTE | 2022-11-27 09:25 | Hospitalist Consultation ---
Date of Consultation November 27, 2022 Assessment & Plan (1) Status post total right knee replacement: VTE/Pain/Bowel management per primary orthopedic team (2) Depression: Continue fluoxetine (3) GERD (gastroesophageal reflux disease): No acute concerns. Continue omeprazole as outpatient. No change to discharge medications (4) Speech dysfluency: With dysphasia Last appointment cancelled due to shoulder surgery in November 2021. Recommended she call the office for follow up for this as appears to be lost to follow up although appears stable per patient. Plan Post op labs and vital signs reviewed. Thank you for the consult. We will sign off at this time as patient is a planned discharge for today. Please contact [facility] hospitalist interior design consultant if you would like us to review patient or for any questions or concerns. No change to chronic medications on discharge recommended. History of Present Illness Reason for Consultation: postop management Attending Physician: Manny Mckeon MD History of Present Illness Roxana Schaefer is a 72 year old female POD#1 Right total knee arthroplasty. Estimated blood loss 5ml. No acute concerns or questions from the patient. Planned discharge for today per patient. Allergies Allergy/AdvReac Type Severity Reaction Status Date / Time codeine AdvReac Intermediate [place] Verified 11/26/22 11:14 "terrible" NSAIDS (Non-Steroidal AdvReac Intermediate Stomach Verified 11/26/22 11:14 Anti-Inflamma issues oxycodone AdvReac Mild pt prefers Verified 11/26/22 11:16 not to take- " didn't like how it made me feel" sabrina dressing Allergy Mild Skin Uncoded 11/26/22 11:14 "burnt" Home Medications Medication Instructions Recorded Confirmed Type calcium carbonate 500 mg-vitamin 1 tab PO QAM 10/26/20 11/26/22 History D3 5 mcg (200 unit) tablet (Calcium 500 + D) fexofenadine 180 mg tablet 180 mg PO QAM 10/26/20 11/26/22 History (Allergy Relief (fexofenadine)) multivitamin 1 tab PO QAM 10/26/20 11/26/22 History acetaminophen 500 mg tablet 1,000 mg PO Q8 PRN Pain 04/30/22 11/26/22 History (Tylenol Extra Strength) albuterol sulfate 90 mcg/actuation 2 puff inhalation Q6H PRN 04/30/22 11/26/22 History aerosol inhaler (Ventolin HFA) Shortness Of Breath Or Wheezing amoxicillin 500 mg capsule 2,000 mg PO DIRECTED PRN 1 HR. 06/17/22 11/26/22 Rx PRIOR TO DENTAL APPT. #4 caps triamcinolone acetonide 0.1 % 1 applic topical BID PRN rash #80 10/21/22 11/26/22 Rx topical cream grams fluoxetine 40 mg capsule (Prozac) 40 mg PO QPM 10/24/22 11/26/22 History omeprazole 40 mg capsule,delayed 40 mg PO QAM 10/24/22 11/26/22 History release acetaminophen 500 mg tablet 1,000 mg PO Q8 #60 tabs 11/27/22 Rx (Tylenol Extra Strength) aspirin 81 mg tablet,delayed 81 mg PO BID #60 tabs 11/27/22 Rx release tramadol 50 mg tablet 50 - 100 mg PO .Q4h-6h PRN pain 11/27/22 Rx #30 tabs Patient History Medical History Carotid artery plaque no significant stenosis on 04/2022 neck CTA Depression Difficult airway for intubation L2-S1 discectomy and fusion (02/16/17): Grade view 1 via elective glidescope #3 (limited cervical ROM), ETT 7 at [facility] GERD (gastroesophageal reflux disease) controlled, stable per pt History of skin cancer yrs ago, left cheek, s/p intervention History of uterine leiomyoma HTN (hypertension) controlled, stable per pt Lumbosacral stenosis with neurogenic claudication Mild cognitive impairment Palpitations pt denies Schatzki's ring of distal esophagus Seasonal allergies Reason for inhaler Temporomandibular joint disorder Right side clicking, no locking Surgical History (Updated 11/27/22 @ 09:24 by Paresh Evans MD) History of colonoscopy History of esophagogastroduodenoscopy (EGD) Multiple (most recent 11/21/20) History of lumpectomy RT (BENIGN) History of spinal fusion L2-S1 discectomy and fusion (02/16/17): Grade view 1 via elective glidescope #3 (limited cervical ROM), ETT 7 at [facility] History of tonsillectomy History of total replacement of left shoulder joint 08/14/21 @ [facility] 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 ([facility]) History of total shoulder replacement RIGHT History of tubal ligation History of umbilical hernia repair S/P shoulder replacement left Status post cervical arthrodesis x2 Family History Father Family history of heart disease Myocardial infarction Brother Prostate cancer Asthma Mother Stomach cancer Other No family history of adverse response to anesthesia No pertinent family history in first degree relatives Denies family history of Ovarian cancer Breast cancer Colorectal cancer Social History Smoking Status: Never smoker Second Hand Exposure: No; Do You Dip or Chew Tobacco: No; Tobacco Cessation Education Requested by Patient: No Hx Alcohol Use: Yes ("alex") Alcohol type: other Alcohol Intake Frequency: Monthly or Less Hx Substance Use: No Preferred Language: Haitian Communication Ability: Effective Visual Impairment: No Limitations Hearing Ability: Normal Accounts Adjustable Clerk Required: No Beliefs That Will Affect Care: None marital status: Current Living Situation: Spouse current occupational status: retired current occupation: How many Children do You have: 1 Other Information That Helps Us Care for You: No Feels Safe at Home: Yes Safety Concerns: Feels Safe At This Time Childhood Exposure to Second-Hand Smoke: No Diet: regular Dental Care, Regularly: Yes Physical Activity Frequency: 1-2 Times per Week Seatbelt Use: always Sunscreen Use: Yes Assistive Devices: Glasses Review of Systems Review of Systems: All systems reviewed & are unremarkable except as noted in HPI & below Physical Exam Constitutional: WD/WN, vitals as above ENMT: external ear and nose normal, oropharynx normal Respiratory: normal respiratory effort, lungs clear to auscultation Cardiovascular: RRR, no murmur, no edema Gastrointestinal (Abdomen): normal bowel sounds, soft, nontender, no hepatosplenomegaly Musculoskeletal: NV intact distal to operation site. Drain currently in place with hemo- sanguinous fluid. Neurologic: moves all extremities and awake; not confused Speech / Cognition: + expressive aphasia (mild, chronic patient) Psychiatric: A+Ox3, euthymic affect Results & Data Results & Data Vital Signs (Past 12 Hours) Vital Signs Temp Pulse Pulse Resp BP Pulse Ox O2 Del Method 11/27/22 07:24 36.4 C L 54 L 18 132/73 99 Room Air 11/27/22 02:59 36.4 C L 62 16 123/67 95 Room Air 11/26/22 23:13 36.5 C 66 16 119/57 L 95 Room Air Laboratory Results Abnormal lab results 11/27/22 11/27/22 Range/Units 05:52 05:52 RBC 3.83 L (4.20-5.40) M/uL Chloride 108 H (98-107) mmol/L Anion Gap 2 L (3-11) BUN/Creatinine Ratio 28.2 H (10-20) Glucose 122 H (70-99(Fasting)) mg/dl Calcium 8.3 L (8.6-10.3) mg/dl PG Care Time/CCT Total # of Minutes Spent Total Time Spent with Patient: Total time spent is greater than 50% in coordination of care (as documented) at patient's floor/unit and/or counseling patient: Coding Level of Care Code 27847 IN/OBS CONSULT LVL 3,45M Diagnoses Status post total right knee replacement Z96.651 Depression F32.9 GERD (gastroesophageal reflux disease) K21.9 Esophagitis presence: without esophagitis Speech dysfluency R47.89 (3) GERD (gastroesophageal reflux disease) Esophagitis presence: without esophagitis Qualified Code(s): K21.9 - Gastro- esophageal reflux disease without esophagitis
--- NOTE | 2022-11-27 12:22 | Discharge Summary ---
Date of Service November 27, 2022 Admission HPI Per Admitting Provider 72 year old female with PMHx significant for GERD, carotid artery disease, hypertension, depression who presents with ongoing right knee pain. Her pain is interfering with her daily activities. She has failed conservative measures including viscosupplementation and steroid injections as well as anti- inflammatories. She would like to proceed with surgical intervention. Patient denies headaches, sweats, fevers, chills, double vision, blurred vision, cough, sore throat, dysphagia, chest pain, sob, wheezing, n/v/d/c, numbness, tingling, fatigue, urinary symptoms, mood disorders. ROS positive for right knee pain and stiffness. Admission Exam Per Admitting Provider Constitutional: well developed and well nourished; no acute distress Eyes: PERRL, conjunctivae normal, anicteric sclerae ENMT: external ear and nose normal, oropharynx normal Neck: trachea midline, no thyromegaly Respiratory: normal respiratory effort, lungs clear to auscultation Cardiovascular: RRR, no murmur, no edema Musculoskeletal: Right knee: Mild effusion. Tenderness medial joint line. Mild varus alignment. Stable to valgus and varus stress test. Range of motion is 0 to 130 degrees. Skin: no rashes, warm and dry Neurologic: patellar DTR's 2+ bilat, sensation intact Psychiatric: A+Ox3, euthymic affect Principal Diagnosis Right knee osteoarthritis Discharge Exam Right knee: Dressing is clean, dry, intact. Toes are mobile with good dorsiflexion. No calf tenderness. Patient is able to do a straight leg raise. Distally neurovascular status and sensation is grossly intact. Discharge Data Allergies Allergy/AdvReac Type Severity Reaction Status Date / Time codeine AdvReac Intermediate [place] Verified 11/26/22 11:14 "terrible" NSAIDS (Non-Steroidal AdvReac Intermediate Stomach Verified 11/26/22 11:14 Anti-Inflamma issues oxycodone AdvReac Mild pt prefers Verified 11/26/22 11:16 not to take- " didn't like how it made me feel" sabrina dressing Allergy Mild Skin Uncoded 11/26/22 11:14 "burnt" Consultations 11/21/22 12:37 Consult Hospitalist Routine Procedures Performed Operation Date: 11/26/22 12:15 Actual Procedures p Right Total Knee Arthroplasty(Right) - Manny Mckeon MD Ordered Studies 11/26/22 05:00 US - OR guided needle placemen Routine Hospital Course (1) Primary osteoarthritis of right knee: Postop day #1 right total knee arthroplasty -PT/OT -Pain management as written -DVT prophylaxis: SCDs, teds, aspirin 81 mg twice daily -AM labs: Hemoglobin 12.5 from 13.8 preop. Acute blood loss due to surgical loss versus dilutional. Patient is asymptomatic. -Discharge planning: Plan on discharge home today with plans on outpatient therapy. Lab Results 11/27/22 11/27/22 Range/Units 05:52 05:52 WBC 9.53 (4.8-10.8) K/ul RBC 3.83 L (4.20-5.40) M/uL Hgb 12.5 (12.0-16.0) g/dl Hct 37.4 (37.0-47.0) % MCV 97.7 (80.0-100.0) fL MCH 32.6 (25.0-34.0) pg MCHC 33.4 (32.0-36.0) g/dL RDW Std Deviation 42.6 (36.4-46.3) fL RDW Coeff of Ferny 11.9 (11.5-14.5) % Plt Count 220 (130-400) K/uL MPV 9.9 (9.4-12.4) fL Sodium 139 (136-145) mmol/L Potassium 4.4 (3.5-5.1) mmol/L Chloride 108 H (98-107) mmol/L Carbon Dioxide 29 (21-32) mmol/L Anion Gap 2 L (3-11) BUN 20 (6-23) mg/dl Creatinine 0.71 (0.6-1.2) mg/dl Est Cr Clr Drug Dosing 31.4 ml/min Est GFR ( Amer) 97.3 ml/min Est GFR (Non-Af Amer) 83.9 ml/min BUN/Creatinine Ratio 28.2 H (10-20) Glucose 122 H (70-99(Fasting)) mg/dl Calcium 8.3 L (8.6-10.3) mg/dl Total Time Total Time Spent Total Time Spent (In Minutes): 20 Discharge Plan Discharge Items Patient Disposition: Home - Self-Care Reason For Visit: Right Knee Osteoarthritis Discharge Diagnosis: Right knee osteoarthritis Activity: Per Instructions section Non-emergency contact: Surgeon Call non-emergency contact if: you have any medication questions, your pain is not controlled, your pain is concerning for you, you have a fever, your temperature is above 101, your wound has increased redness and your wound has increased drainage Follow-up/Referrals: Raciel Hector III, CRNP [Primary Care Provider] - Diet: Regular Addtl Attending Provider Instructions: ACTIVITY RECOMMENDATIONS: SELF CARE INSTRUCTIONS AFTER TOTAL KNEE REPLACEMENT A. You may need to continue a physical therapy program after discharge from the hospital. There are several options available to you. Your doctor will assist you in selecting the best one for you. 1. An out-patient facility 2 to 3 times a week for therapy or home therapy. 2. Continue working on all exercises taught to you in the hospital. Your goals should be to increase bending of your knee to 90 degrees and beyond and to fully straighten your knee. B. You may progress at your own pace from walking with a walker or crutches to a cane; then to no assistive devices. C. Make walking a part of your daily routine. Be up as much as comfortable with rest periods throughout the day. Rest with leg elevation is very important. Use the ice wrap frequently for the first 3-4 weeks. D. There are no restrictions on activities. You may ride in a car, shop, participate in chemistry faculty member and all social activities. E. Wear the long elastic stockings (RUTHIE hose) 20 hours a day for 2 weeks after surgery. They can be removed several times a day for laundering and for a bath. F. You may shower, no tub baths until cleared by your doctor. SPECIAL CARE INSTRUCTIONS: VERY IMPORTANT TO READ AND REVIEW A. There are a few signs you need to watch for after you are home. Call [facility] if you notice any of the followin. Increased severe knee pain. Some pain is expected especially when you exercise. 2. Increased swelling in your leg or knee; pain or swelling of the calf muscle in either lower leg. 3. Any fluid drainage from the incision. 4. Shortness of breath or chest pain. B. Please call [facility] at if you have any concerns or questions about your operation or recovery. The doctor or his nurse will return your call promptly. C. You must take antibiotics before dental work, bladder, bowel or other surge ry. Your doctor will provide you with a permanent care to carry describing this precaution. IMPORTANT: * REMEMBER TO TAKE ASPIRIN, 81 MG, TWICE DAILY FOR 4 WEEKS UNLESS OTHERWISE DIRECTED. THIS IS YOUR BLOOD THINNER. * HIGH RISK PATIENTS MAY BE PRESCRIBED A STRONGER BLOOD THINNER. THIS WILL BE PROVIDED AT DISCHARGE. * CALL IF INCREASED PAIN, REDNESS, DRAINAGE OR FEVER GREATER THAT 101. * WEAR RUTHIE HOSE 20 HOURS PER DAY FOR 2 WEEKS. Continue daily dressing changes. You may shower after 48 hours and get incision wet indirectly. Do not soak or submerge incision. IF INCISION IS LEAKING THROUGH DRESSING, CALL THE OFFICE . FOLLOW UP VISIT: If appointment is not already scheduled: Please call [facility] to make a follow-up appointment for 2 weeks after your surgery at . Stand-Alone Forms: My [facility] [employer], Smoking Cessation Medications and DC Order Prescriptions: New tramadol 50 mg Tablet 50 - 100 mg PO .Q4h-6h MDD 6 PRN (Reason: pain) Qty: 30 0RF Rx Instructions: Ongoing therapy, Dr. Nguyen supervising aspirin 81 mg Tablet,Delayed Release (Dr/Ec) 81 mg PO BID Qty: 60 0RF acetaminophen [Tylenol Extra Strength] 500 mg Tablet 1,000 mg PO Q8 Qty: 60 0RF Continued amoxicillin 500 mg capsule 2,000 mg PO DIRECTED PRN (Reason: 1 HR. PRIOR TO DENTAL APPT.) Qty: 4 1RF triamcinolone acetonide 0.1 % cream 1 applic topical BID PRN (Reason: rash) Qty: 80 1RF albuterol sulfate [Ventolin HFA] 90 mcg/actuation HFA aerosol inhaler 2 puff inhalation Q6H PRN (Reason: Shortness Of Breath Or Wheezing) fluoxetine [Prozac] 40 mg capsule 40 mg PO QPM omeprazole 40 mg capsule,delayed release(DR/EC) 40 mg PO QAM multivitamin Tablet 1 tab PO QAM fexofenadine [Allergy Relief (fexofenadine)] 180 mg Tablet 180 mg PO QAM calcium carbonate-vitamin D3 [Calcium 500 + D] 500 mg(1,250mg) -200 unit Tablet 1 tab PO QAM Discontinued acetaminophen [Tylenol Extra Strength] 500 mg tablet 1,000 mg PO Q8 PRN (Reason: Pain) Discharge Orders: Discharge Order (Routine); Ordered 11/27/22 Ordered By: Delonte Hope Admission Data Admit Date/Time: 11/26/22 15:54 Attending Provider: Manny Mckeon Admit Provider: Manny Mckeon Primary Care Provider: Raciel Hector III Other Providers: Paresh Thomson Jonathan M. Other Interventions: Discharge Summary Assessment (RN) Last Done: 11/27/22 10:47
== END 2022-11-27 12:19 | disposition home or self-care (01) ==
LOC: 3E 10:45 → ASU 10:45
DX: R13.10 Dysphagia, unspecified; Z79.899 Other long term (current) drug therapy; Z79.82 Long term (current) use of aspirin; F32.A Depression, unspecified; R47.89 Other speech disturbances; I10 Essential (primary) hypertension; Z88.6 Allergy status to analgesic agent; Z88.5 Allergy status to narcotic agent; M65.9 Synovitis and tenosynovitis, unspecified; K21.9 Gastro-esophageal reflux disease without esophagitis; G31.84 Mild cognitive impairment of uncertain or unknown etiology; M17.11 Unilateral primary osteoarthritis, right knee

== ENCOUNTER 2024-10-08 12:25 | Observation (INO) ==
[2024-10-08] MEDS: SODIUM CHLORIDE 0.9% 1,000 ML IV ONE (12:51)
[2024-10-08] MEDS: DEXAMETHASONE SOD INJ 4 MG/ML VIAL IV STA (12:53)
--- NOTE | 2024-10-08 12:55 | Emergency Department Note ---
Impression & Plan COVID-19, Frontotemporal dementia, Acute respiratory failure with hypoxia, Acute hyponatremia ED Provider Note NAME: ЕЛЕНА COLE AGE: 74 SEX: F : 1950 ARRIVES VIA: Walk-In INFORMANT: Patient, ED PROVIDER(S): Antoine Gaviria DO CHIEF COMPLAINT: sore throat HPI: This is a 74-year-old female with the PMHx of hypertension, hyperlipidemia, frontal lobe dementia, depression, osteoarthritis, expressive aphasia, iron deficiency anemia, GERD and depression presenting to [facility] for further evaluation of sore throat. Patient is accompanied by her who provides additional history. provides most of the history. Patient has been ill since . Patient has had congestion and a sore throat. She has dysphagia and odynophagia. Patient unable to tolerate liquid intake. Patient was seen by urgent care today. They recommended ED evaluation for IV medications. Patient and her are also stating that they were sent in for evaluation of Paxlovid. They deny fever or chills. Denies chest pain or palpitations. No shortness of breath. They deny abdominal pain, nausea and vomiting. No urinary complaints. No recent changes in bowel movements. Patient denies recent changes in medications or OTC supplements. Patient offers no other complaints, today. ADDITIONAL HISTORY OBTAINED: Per HPI Chronic Medical/Social Conditions Affecting Care: Per HPI PAST MEDICAL HISTORY: See Below PAST SURGICAL HISTORY: See Below FAMILY HISTORY: See Below SOCIAL HISTORY: See Below HOME MEDICATIONS: See Below ALLERGIES: See Below VITALS: See Below PHYSICAL EXAMINATION: GENERAL: Sitting up in bed, alert, well appearing, well nourished, no distress, non-toxic EYE EXAM: normal conjunctiva. PERRL and EOM's grossly intact. OROPHARYNX: no exudate, There is posterior oropharynx swelling and erythema, no exudates, no large mass, no uvula deviation, lips, buccal mucosa, and tongue normal and mucous membranes are moist NECK: supple, no nuchal rigidity, minimal lymphadenopathy present, non-tender LUNGS: Clear to auscultation. Normal chest wall mechanics HEART: no murmurs, regular rate, regular rhythm ABDOMEN: abdomen soft, non-tender, no masses, no rebound or guarding. BACK: Back is symmetrical on inspection and there is no deformity, no midline tenderness, no CVA tenderness. SKIN: no rashes and no bruising UPPER EXTREMITIES: upper extremities are grossly normal. LOWER EXTREMITIES: No pitting edema. NEURO EXAM: Normal sensorium, GCS 15, normal speech, no gross weakness of arms, no gross weakness of legs. 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 Differential as above. Nursing notes and pertinent past medical records reviewed. Vital signs reviewed and the patient is afebrile and hemodynamically stable. She appears in no acute respiratory distress. History and presentation revealed recent evaluation in urgent care after being ill over the last few days. I reviewed documentation from [facility]. Does show negative strep swab but positive for COVID-19. Patient had concerns about possible pneumonia and she was sent to the emergency department for further evaluation. Patient was diagnosed with COVID and sent to the emergency department further evaluation. Physical examination revealed as above. As a result of my initial evaluation, we will plan for basic lab as well as a chest x-ray to evaluate for pneumonia. Plan to manage the patient's symptoms with IV medications and fluids at this time. Diagnostics interpreted by me include cardiac monitoring as listed below: -Cardiac Monitoring: An order was placed for continuous cardiac monitoring. The monitor shows a rate of 60-70s with regular rhythm. Patient completed laboratory studies and imaging. Results independently interpreted by me are no significant leukocytosis or elevated procalcitonin. Electrolytes are largely normal. She does have mild hyponatremia but this could be pseudohyponatremia from hyperglycemia. No kidney dysfunction. Patient does not have changes in other electrolytes or her LFTs. The patient was managed with IV fluid resuscitation, Toradol and acetaminophen. Patient will need evaluated see if she can tolerate p.o. intake. Regarding Paxlovid, this does have drug interactions with her home medications. Will discuss further with the patient and her family member. Patient's illness is not severe at this time. Do not feel that medication is not completely necessary. CXR independently interpreted by me reveals no evidence of focal consolidation to suggest pna. No large pneumothorax or pleural effusion. Patient was reporting improvement in her symptoms following medications. Patient's oxygen saturation has been in the low 90s throughout the course in the emergency department. Do feel with the patient's failure of p.o. intake as well as age and comorbidities, she has high probability of decompensation from COVID infection. Given her potential for acute hypoxic respiratory failure, I do feel that is reasonable to admit the patient to the hospitalist service. Family is more comfortable with this plan rather than discharge. Ultimately, the decision was made to admit the patient for Acute hypoxic respiratory failure secondary to COVID-19 infection with failure p.o. intake. I discussed the case with the hospitalist service via telephone/TigerText and they are agreeable to admit the patient to their services by Dr. Overton. Based on the above, including the patient's age, coexisting illnesses, labs, imaging, and exam findings the decision to treat as an inpatient. I discussed the patient with the hospitalist team who recommended admission to their services. They received the medications, treatments, interventions indicated above and their condition remained guarded. I discussed my findings with the patient and their family and they understand and agree with the treatment plan. All patient / family questions were answered to their satisfaction. Consults/Care Managements Discussions: Per [facility] ER treatment provided: See above Procedures: none Critical Care: None The chart was completed utilizing [employer] Speech voice recognition software. Grammatical errors, random word insertions, pronoun errors, and incomplete sentences are an occasional consequence of this system due to software limitations, ambient noise, and hardware issues. Any formal questions or concerns about the content, text, or information contained within the body of this dictation should be directly addressed to the physician for clarification. 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 (Chronic) Iron deficiency (Chronic) Vitamin D deficiency (Chronic) Situational anxiety (Chronic) Depression (Chronic) GERD (gastroesophageal reflux disease) (Chronic) controlled, stable per pt Medical History Primary osteoarthritis of right knee Lumbosacral radiculopathy Difficult airway for intubation L2-S1 discectomy and fusion (02/16/17): Grade view 1 via elective glidescope #3 (limited cervical ROM), ETT 7 at [facility] History of skin cancer yrs ago, left cheek, s/p intervention Temporomandibular joint disorder Right side clicking, no locking Seasonal allergies Reason for inhaler Palpitations pt denies History of uterine leiomyoma Lumbosacral stenosis with neurogenic claudication Surgical History Status post total right knee replacement History of lumbar spinal fusion History of total replacement of left shoulder joint 08/14/21 @ [facility] S/P shoulder replacement left 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 ( Ja) History of total shoulder replacement RIGHT History of esophagogastroduodenoscopy (EGD) Multiple (most recent 11/21/20) History of colonoscopy Status post cervical arthrodesis x2 History of umbilical hernia repair History of tubal ligation History of tonsillectomy History of lumpectomy RT (BENIGN) History of spinal fusion L2-S1 discectomy and fusion (02/16/17): Grade view 1 via elective glidescope #3 (limited cervical ROM), ETT 7 at [facility] Family History Father Family history of heart disease Myocardial infarction Brother Prostate cancer Asthma Mother Stomach cancer Other No family history of adverse response to anesthesia No pertinent family history in first degree relatives Denies family history of Ovarian cancer Breast cancer Colorectal cancer Social History Smoking Status: Never smoker Second Hand Exposure: No; Do You Dip or Chew Tobacco: No; Hx Alcohol Use: No Hx Substance Use: No Preferred Language: Arabic Communication Ability: Effective Visual Impairment: No Limitations Hearing Ability: Normal 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: No Beliefs That Will Affect Care: None marital status: Current Living Situation: Spouse current occupational status: retired current occupation: How many Children do You have: 2 Feels Safe at Home: Yes Childhood Exposure to Second-Hand Smoke: No Diet: regular caffeine: No Dental Care, Regularly: Yes Physical Activity Frequency: Daily Seatbelt Use: always Sunscreen Use: Yes Assistive Devices: None Allergies Allergies Allergy/AdvReac Type Severity Reaction Status Date / Time codeine AdvReac Intermediate [place] Verified 10/08/24 14:56 "terrible" NSAIDS (Non-Steroidal AdvReac Intermediate Stomach Verified 10/08/24 14:56 Anti-Inflamma issues oxycodone AdvReac Unknown pt prefers Verified 10/08/24 14:56 not to take- " didn't like how it made me feel" adhesive glue Allergy Intermediate Rash Uncoded 10/08/24 14:56 sabrina dressing Allergy Mild Skin Uncoded 10/08/24 14:56 "burnt" Home Meds Home Medications Medication Instructions Recorded Confirmed calcium 500 mg (as 1 tab PO QAM 10/26/20 10/08/24 carbonate)-vitamin D3 5 mcg (200 unit) tablet (Calcium 500 + D) fexofenadine 180 mg tablet 180 mg PO QAM 10/26/20 10/08/24 (Allergy Relief (fexofenadine)) multivitamin 1 tab PO QAM 10/26/20 10/08/24 acetaminophen 500 mg tablet 1,000 mg PO Q8 PRN Fever Or Pain 10/13/23 10/08/24 (Tylenol Extra Strength) fluoxetine 40 mg capsule 40 mg PO QAM 04/19/24 10/08/24 omeprazole 40 mg capsule,delayed 40 mg PO QAM 10/08/24 10/08/24 release Previous Rx's Medication Instructions Recorded amoxicillin 500 mg capsule 2,000 mg (4 x 500 mg) PO 06/17/22 DIRECTED PRN 1 HR. PRIOR TO DENTAL APPT. #4 caps albuterol sulfate 90 mcg/actuation 2 puff inhalation Q6H PRN 06/30/23 aerosol inhaler (Ventolin HFA) Shortness Of Breath Or Wheezing #8.5 grams carbidopa 25 mg-levodopa 100 mg 1 tab PO TID #90 tabs 10/07/24 tablet memantine 5 mg tablet 5 mg PO BID #60 tabs 10/07/24 Results & Data (ED) Vital Signs Vital Signs - 24 hr 10/08/24 12:28 10/08/24 13:03 10/08/24 13:03 Temperature 37.5 C Temperature Source Temporal Artery Scan Pulse Rate 91 H Pulse Rate [Apical] 80 Pulse Rate from SpO2 Sensor Respiratory Rate 19 16 Respiratory Effort / Characteristics Non-Labored Spontaneous Non-Labored Spontaneous Respiratory Depth Normal Normal Respiratory Pattern Regular Regular Blood Pressure 135/78 Blood Pressure [Left Arm] 158/84 H Blood Pressure Mean 97 Blood Pressure Mean [Left Arm] 108 Blood Pressure Position [Left Arm] Semi-fowlers Pulse Oximetry 91 95 95 Oxygen Delivery Method Room Air Room Air Room Air Sepsis Recent Fever Within 48 Hours Yes Sepsis New/Unexplained Change in Mental Status No Sepsis Action Taken by Nursing No Action Required 10/08/24 13:19 10/08/24 13:33 10/08/24 13:45 Temperature Temperature Source Pulse Rate 73 68 Pulse Rate [Apical] 71 Pulse Rate from SpO2 Sensor 68 Respiratory Rate 18 14 Respiratory Effort / Characteristics Respiratory Depth Respiratory Pattern Blood Pressure Blood Pressure [Left Arm] 132/77 Blood Pressure Mean Blood Pressure Mean [Left Arm] 95 Blood Pressure Position [Left Arm] Pulse Oximetry 93 92 Oxygen Delivery Method Sepsis Recent Fever Within 48 Hours Sepsis New/Unexplained Change in Mental Status Sepsis Action Taken by Nursing 10/08/24 14:00 10/08/24 14:30 10/08/24 15:00 Temperature Temperature Source Pulse Rate 65 Pulse Rate [Apical] 65 Pulse Rate from SpO2 Sensor 64 Respiratory Rate 14 20 Respiratory Effort / Characteristics Respiratory Depth Respiratory Pattern Blood Pressure 144/75 H Blood Pressure [Left Arm] 148/74 H Blood Pressure Mean 92 Blood Pressure Mean [Left Arm] 98 Blood Pressure Position [Left Arm] Pulse Oximetry 93 95 Oxygen Delivery Method Room Air Room Air Sepsis Recent Fever Within 48 Hours Sepsis New/Unexplained Change in Mental Status Sepsis Action Taken by Nursing 10/08/24 15:00 Temperature Temperature Source Pulse Rate Pulse Rate [Apical] Pulse Rate from SpO2 Sensor Respiratory Rate Respiratory Effort / Characteristics Respiratory Depth Respiratory Pattern Blood Pressure 138/71 Blood Pressure [Left Arm] Blood Pressure Mean 98 Blood Pressure Mean [Left Arm] Blood Pressure Position [Left Arm] Pulse Oximetry Oxygen Delivery Method Sepsis Recent Fever Within 48 Hours Sepsis New/Unexplained Change in Mental Status Sepsis Action Taken by Nursing Laboratory Data 10/08/24 12:50 10/08/24 12:50 Lab Results 10/08/24 Range/Units 12:50 WBC 7.51 (4.8-10.8) K/ul RBC 4.81 (4.20-5.40) M/uL Hgb 15.4 (12.0-16.0) g/dl Hct 46.0 (37.0-47.0) % MCV 95.6 (80.0-100.0) fL MCH 32.0 (25.0-34.0) pg MCHC 33.5 (32.0-36.0) g/dL RDW Std Deviation 43.7 (36.4-46.3) fL RDW Coeff of Ferny 12.2 (11.5-14.5) % Plt Count 181 (130-400) K/uL MPV 9.4 (9.4-12.4) fL Immature Gran % (Auto) 0.1 % Neut % (Auto) 67.9 % Lymph % (Auto) 17.2 % Jackson % (Auto) 14.5 % Eos % (Auto) 0.0 % Baso % (Auto) 0.3 % Neut # (Auto) 5.10 (1.40-6.50) K/uL Lymph # (Auto) 1.29 (1.20-3.40) K/uL Jackson # (Auto) 1.09 H (0.11-0.59) K/uL Eos # (Auto) 0.00 (0.00-0.50) K/uL Baso # (Auto) 0.02 (0.00-0.20) K/uL Immature Gran # (Auto) 0.01 (0.01-0.20) K/uL Sodium 135 L (136-145) mmol/L Potassium 4.2 (3.5-5.1) mmol/L Chloride 98 (98-107) mmol/L Carbon Dioxide 31 (21-32) mmol/L Anion Gap 6 (3-11) BUN 19 (6-23) mg/dl Creatinine 0.98 (0.6-1.2) mg/dl Est Cr Clr Drug Dosing 45.1 ml/min eGFR 59.82 BUN/Creatinine Ratio 19.4 (10-20) Glucose 112 H (70-99(Fasting)) mg/dl Calcium 9.3 (8.6-10.3) mg/dl Total Bilirubin 0.4 (0.2-1.0) mg/dl AST 29 (13-39) U/L ALT 27 (7-52) U/L Alkaline Phosphatase 85 (34-104) U/L Total Protein 7.6 (6.0-8.3) gm/dl Albumin 4.1 (3.4-5.0) gm/dl Globulin 3.5 (2.5-4.0) gm/dl Albumin/Globulin Ratio 1.2 (0.9-2) Procalcitonin 0.04 (0-0.5) ng/ml Administered Medications Calcium/Vitamin D (Calcium 600mg + Vit D 400 Iu Tab) 1 tab PO QAM TREVOR Stop: 11/08/24 08:59 Last Admin: 10/09/24 08:15 Dose: 1 tab Documented By: YOUSIF Carbidopa/Levodopa (Carbidopa/Levodopa 25/100mg Tab) 1 tab PO TID TREVOR Stop: 11/07/24 20:59 Last Admin: 10/09/24 08:15 Dose: 1 tab Documented By: Admin: 10/08/24 20:49 Dose: 1 tab Documented By: SRIDHAR Fluoxetine HCl (Fluoxetine Hcl 20 Mg Cap) 40 mg PO QAM TREVOR Stop: 11/08/24 08:59 Last Admin: 10/09/24 08:16 Dose: 40 mg Documented By: YOUSIF Dexamethasone 6 mg/ Syringe 1.5 mls @ 1 mls/min IV DAILY TREVOR Stop: 10/19/24 08:59 Last Admin: 10/09/24 08:15 Dose: 1 mls/min Documented By: YOUSIF Memantine (Memantine Hcl 5 Mg Tab) 5 mg PO BID TREVOR Stop: 11/07/24 20:59 Last Admin: 10/09/24 08:15 Dose: 5 mg Documented By: Admin: 10/08/24 20:49 Dose: 5 mg Documented By: SRIDHAR Discontinued Medications Dexamethasone (Dexamethasone Sod Inj 4 Mg/Ml Vial) 10 mg IV NOW STA Stop: 10/08/24 12:42 Last Admin: 10/08/24 12:53 Dose: 10 mg Documented By: THIEN Enoxaparin Sodium (Enoxaparin Inj 40 Mg/0.4 Ml Syr) 40 mg SQ NOW STA Stop: 10/08/24 17:34 Last Admin: 10/08/24 19:06 Dose: 40 mg Documented By: YOUSIF Sodium Chloride (Nss) 1,000 mls @ 999 mls/hr IV .Q1H1M ONE Stop: 10/08/24 13:41 Last Infusion: 10/08/24 13:52 Dose: Infused Documented By: Admin: 10/08/24 12:51 Dose: 999 mls/hr Documented By: THIEN Acetaminophen (Ofirmev) 1,000 mg in 100 mls @ 400 mls/hr IV NOW STA Stop: 10/08/24 12:55 Last Infusion: 10/08/24 13:15 Dose: Infused Documented By: Admin: 10/08/24 13:00 Dose: 400 mls/hr Documented By: THIEN Remdesivir 200 mg/ Sodium (Chloride) 250 mls @ 125 mls/hr IV ONE STA Stop: 10/08/24 19:26 Last Infusion: 10/08/24 20:45 Dose: Infused Documented By: Admin: 10/08/24 18:33 Dose: 125 mls/hr Documented By: YOUSIF Ketorolac Tromethamine (Ketorolac Tromethamine 15 Mg/Ml Vial) 15 mg IV NOW STA Stop: 10/08/24 12:43 Last Admin: 10/08/24 13:09 Dose: 15 mg Documented By: THIEN Discharge Plan Visit Data Chief Complaint: Sore Throat Stated Complaint: SORE THROAT,COUGH ED Provider: Antoine Gaviria Discharge Problem: COVID-19, Frontotemporal dementia, Acute respiratory failure with hypoxia, Acute hyponatremia Patient Disposition: Admitted As Inpatient Condition: Fair Discharge Instructions Interventions: ED Discharge Assessment Last Done: 10/08/24 18:52
[2024-10-08] MEDS: ACETAMINOPHEN 1,000 MG/100 ML VIAL IV STA (13:00)
[2024-10-08 13:02] LABS: Hematocrit (blood only) 46.0 % (37.0-47.0); Hemoglobin 15.4 g/dl (12.0-16.0); Immature Granulocytes # (auto) 0.01 K/uL (0.01-0.20); Immature Granulocytes % (auto) 0.1 %; Mean Corpuscular Hemoglobin 32.0 pg (25.0-34.0); Mean Corpuscular Volume 95.6 fL (80.0-100.0); Platelet Count 181 K/uL (130-400); RDW Standard Deviation 43.7 fL (36.4-46.3); Red Blood Count 4.81 M/uL (4.20-5.40); White Blood Count 7.51 K/ul (4.8-10.8)
[2024-10-08] MEDS: KETOROLAC TROMETHAMINE 15 MG/ML VIAL IV STA (13:09)
[2024-10-08 13:20] LABS: Alanine Aminotransferase 27.0 U/L (7-52); Albumin Globulin Ratio 1.2 (0.9-2); Alkaline Phosphatase 85.0 U/L (34-104); Anion Gap 6.0 (3-11); Bilirubin,Total 0.4 mg/dl (0.2-1.0); Blood Urea Nitrogen 19.0 mg/dl (6-23); Calcium 9.3 mg/dl (8.6-10.3); Carbon Dioxide 31.0 mmol/L (21-32); Chloride 98.0 mmol/L (98-107); Creatinine Clr Calc Pharmacy 45.1 ml/min; Globulin 3.5 gm/dl (2.5-4.0); Glucose 112.0 mg/dl (70-99(Fasting)); Potassium 4.2 mmol/L (3.5-5.1); Sodium 135.0 mmol/L (136-145); Total Protein 7.6 gm/dl (6.0-8.3)
--- NOTE | 2024-10-08 14:27 | XRay Report ---
Chest x-ray, 2 views History: Pneumonia Comparison: 02/10/2023 Technique: 2 views of the chest, PA and lateral Findings: The lungs are clear. The cardiomediastinal silhouette is within normal limits. No pleural effusion or pneumothorax. The heart size appears normal. No bony or soft tissue abnormality. Bilateral shoulder prosthesis. Cervical spine fusion Impression: Normal chest x-ray Electronically signed by Ilsa Lindsay 10-08-2024 2:27 PM
--- NOTE | 2024-10-08 17:39 | History & Physical Report ---
Date of Service October 08, 2024 Assessment & Plan (1) Acute respiratory failure with hypoxia: (2) COVID-19: (3) Frontotemporal dementia: (4) Hypertension: (5) Carotid artery disease: (6) Peripheral arterial disease: (7) Expressive aphasia: Plan In summary this is a 74-year-old female who presents with acute respiratory failure with hypoxia in the setting of COVID-19 pneumonitis The patient has minimal associated symptoms however they are persistently at a diminished oxygen saturation on room air maintaining 90%; the patient has no other primary pulmonary or other condition that would explain his persistent hypoxia; should be admitted for observation to determine the need for further interventions with initial treatment as detailed below Maintain oxygen saturation monitoring Continue dexamethasone 6 mg IV daily Start remdesivir bolus at this time, followed by daily treatment Start Lovenox for DVT prophylaxis Admission and Anticipated Discharge Date Admission Date: 10/08/2024 Anticipated date of discharge: 10/10/24 History of Present Illness Chief Complaint: Pharyngitis, odynophagia, general malaise Primary Care Provider: Raciel Hector III, CRNP Ms. Schaefer is a 74-year-old female whose active medical conditions include frontotemporal dementia, progressive aphasia, perioral tremor, coronary and peripheral arterial disease in the setting of hypertension and hyperlipidemia among other chronic medical conditions who presented to the [facility] on 10/08 due to progressive fatigue and malaise associated with increasing pain with swallowing in the posterior oropharynx. The patient does not recall any recent sick contacts, this is corroborated by her spouse who is present at bedside at the time of my assessment. She denies any fevers, chills, nausea, vomiting, sinus congestion, postnasal drip, shortness of breath or dyspnea on exertion. She does endorse a initially nonproductive cough that began approximately 3 to 4 days prior to presentation which then became notably productive without hemoptysis nor purulent sputum approximately 24 hours prior to their presentation.-+ Allergies Allergy/AdvReac Type Severity Reaction Status Date / Time codeine AdvReac Intermediate [place]ia Verified 10/08/24 14:56 "terrible" NSAIDS (Non-Steroidal AdvReac Intermediate Stomach Verified 10/08/24 14:56 Anti-Inflamma issues oxycodone AdvReac Unknown pt prefers Verified 10/08/24 14:56 not to take- " didn't like how it made me feel" adhesive glue Allergy Intermediate Rash Uncoded 10/08/24 14:56 sabrina dressing Allergy Mild Skin Uncoded 10/08/24 14:56 "burnt" Home Medications Medication Instructions Recorded Confirmed Type calcium 500 mg (as 1 tab PO QAM 10/26/20 10/08/24 History carbonate)-vitamin D3 5 mcg (200 unit) tablet (Calcium 500 + D) fexofenadine 180 mg tablet 180 mg PO QAM 10/26/20 10/08/24 History (Allergy Relief (fexofenadine)) multivitamin 1 tab PO QAM 10/26/20 10/08/24 History amoxicillin 500 mg capsule 2,000 mg (4 x 500 mg) PO 06/17/22 10/08/24 Rx DIRECTED PRN 1 HR. PRIOR TO DENTAL APPT. #4 caps albuterol sulfate 90 mcg/actuation 2 puff inhalation Q6H PRN 06/30/23 10/08/24 Rx aerosol inhaler (Ventolin HFA) Shortness Of Breath Or Wheezing #8.5 grams acetaminophen 500 mg tablet 1,000 mg PO Q8 PRN Fever Or Pain 10/13/23 10/08/24 History (Tylenol Extra Strength) fluoxetine 40 mg capsule 40 mg PO QAM 04/19/24 10/08/24 History carbidopa 25 mg-levodopa 100 mg 1 tab PO TID #90 tabs 10/07/24 10/08/24 Rx tablet memantine 5 mg tablet 5 mg PO BID #60 tabs 10/07/24 10/08/24 Rx omeprazole 40 mg capsule,delayed 40 mg PO QAM 10/08/24 10/08/24 History release Past Med/Surg History Problem List (Updated 10/08/24 @ 17:41 by Pop Overton, DO) Schatzki's ring of distal esophagus (Chronic) Acute respiratory failure with hypoxia (Acute) COVID-19 (Acute) Frontotemporal dementia (Chronic) Hypertension (Chronic) Carotid artery disease (Chronic) Peripheral arterial disease (Chronic) Hyperlipidemia (Chronic) Expressive aphasia (Chronic) Perioral tremor (Chronic) Lumbar spinal stenosis due to adjacent segment disease after fusion procedure (Chronic) Iron deficiency (Chronic) Vitamin D deficiency (Chronic) Situational anxiety (Chronic) Depression (Chronic) GERD (gastroesophageal reflux disease) (Chronic) controlled, stable per pt Medical History Primary osteoarthritis of right knee Lumbosacral radiculopathy Difficult airway for intubation L2-S1 discectomy and fusion (02/16/17): Grade view 1 via elective glidescope #3 (limited cervical ROM), ETT 7 at [facility] History of skin cancer yrs ago, left cheek, s/p intervention Temporomandibular joint disorder Right side clicking, no locking Seasonal allergies Reason for inhaler Palpitations pt denies History of uterine leiomyoma Lumbosacral stenosis with neurogenic claudication Surgical History Status post total right knee replacement History of lumbar spinal fusion History of total replacement of left shoulder joint 08/14/21 @ [facility] S/P shoulder replacement left 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 ([facility]) History of total shoulder replacement RIGHT History of esophagogastroduodenoscopy (EGD) Multiple (most recent 11/21/20) History of colonoscopy Status post cervical arthrodesis x2 History of umbilical hernia repair History of tubal ligation History of tonsillectomy History of lumpectomy RT (BENIGN) History of spinal fusion L2-S1 discectomy and fusion (02/16/17): Grade view 1 via elective glidescope #3 (limited cervical ROM), ETT 7 at [facility] Family History Father Family history of heart disease Myocardial infarction Brother Prostate cancer Asthma Mother Stomach cancer Other No family history of adverse response to anesthesia No pertinent family history in first degree relatives Denies family history of Ovarian cancer Breast cancer Colorectal cancer Social History Smoking Status: Never smoker Second Hand Exposure: No; Do You Dip or Chew Tobacco: No; Hx Alcohol Use: No ("seltzers") Hx Substance Use: No Preferred Language: Moldovan Communication Ability: Effective Visual Impairment: No Limitations Hearing Ability: Normal Dialysis Nurse Required: No Beliefs That Will Affect Care: None marital status: Current Living Situation: Spouse current occupational status: retired current occupation: How many Children do You have: 2 Feels Safe at Home: Yes Childhood Exposure to Second-Hand Smoke: No Diet: regular caffeine: No Dental Care, Regularly: Yes Physical Activity Frequency: Daily Seatbelt Use: always Sunscreen Use: Yes Assistive Devices: Walker Review of Systems Review of Systems: Review of constitutional, pulmonary, cardiovascular, neurologic symptoms was unremarkable Physical Exam Physical Exam: General: Adult female in no acute distress Vital Signs: Maintaining O2 saturation 90% on room air HEENT: Tacky mucous membranes; cobblestoning of the posterior oropharynx Neck: No palpable lymphadenopathy Pulmonary: Inspiratory rhonchi present in the posterior lung ellis without absence of lung movement; symmetric chest wall rise without restriction Cardiovascular: Regular rate and rhythm without murmurs, rubs, or gallops; right radial pulse 2+ Neurologic: Low amplitude high-frequency perioral tremor; alert and oriented to self, place, time, circumstance Results & Data Results & Data Vital Signs (Past 12 Hours) Vital Signs Temp Pulse Pulse Resp BP BP Pulse Ox 10/08/24 17:25 66 18 120/70 90 10/08/24 15:00 138/71 10/08/24 15:00 65 20 95 10/08/24 14:30 65 14 148/74 H 93 10/08/24 14:00 144/75 H 10/08/24 13:45 68 14 92 10/08/24 13:33 71 18 132/77 93 10/08/24 13:19 73 10/08/24 13:03 95 10/08/24 13:03 80 16 158/84 H 95 10/08/24 12:28 37.5 C 91 H 19 135/78 91 O2 Del Method 10/08/24 17:25 Room Air 10/08/24 15:00 10/08/24 15:00 Room Air 10/08/24 14:30 Room Air 10/08/24 14:00 10/08/24 13:45 10/08/24 13:33 10/08/24 13:19 10/08/24 13:03 Room Air 10/08/24 13:03 Room Air 10/08/24 12:28 Room Air Laboratory Results CBC was unremarkable, mildly diminished sodium of 135; SARS COV 2 RNA was positive Diagnostic Findings Unremarkable plain film of the chest Code Status & VTE Plan Code Status Full VTE Prophylaxis Plan VTE Prophylaxis will be ordered: Yes Coding Level of Care Code 34939 INT INP/OBS CARE 2/55MIN Diagnoses Acute respiratory failure with hypoxia J96.01 COVID-19 U07.1 Frontotemporal dementia G31.09; F02.80 Primary hypertension I10 Hypertension type: primary hypertension Right-sided carotid artery disease, unspecified type I77.9 Carotid artery disease type: unspecified Laterality: right Peripheral arterial disease I73.9 Expressive aphasia R47.01 (4) Hypertension Hypertension type: primary hypertension Qualified Code(s): I10 - Essential (primary) hypertension (5) Carotid artery disease Carotid artery disease type: unspecified Laterality: right Qualified Code(s): I77.9 - Disorder of arteries and arterioles, unspecified
[2024-10-08] MEDS ORDERED: ALBUTEROL HFA 8 GM INHALER INH PRN (18:17)
[2024-10-08] MEDS ORDERED: ACETAMINOPHEN 500 MG TAB PO PRN (18:17)
[2024-10-08] MEDS: REMDESIVIR 200 MG in SODIUM CHLORIDE 0.9% 210 ML IV STA (18:33)
[2024-10-08 18:50] LABS: Alanine Aminotransferase 25 U/L (7-52)
[2024-10-08] MEDS: ENOXAPARIN INJ 40 MG/0.4 ML SYR SQ STA (19:06)
[2024-10-08] MEDS: MEMANTINE HCL 5 MG TAB PO SCH (20:49)
[2024-10-08] MEDS: CARBIDOPA/LEVODOPA 25/100MG TAB PO SCH (20:49)
[2024-10-09 07:51] LABS: Alanine Aminotransferase 18 U/L (7-52)
[2024-10-09] MEDS: dexAMETHasone 6 MG in SYRINGE 0 ML IV SCH (08:15)
[2024-10-09] MEDS: CALCIUM 600MG + VIT D 400 IU TAB PO SCH (08:15)
[2024-10-09 11:32] VITALS: BP 150/83; PULSE 60; RESP 16; TEMP 98.2; O2SAT 93
--- NOTE | 2024-10-09 13:56 | Discharge Summary ---
Discharge Summary Date of Service October 09, 2024 Principal Dx & Hospital Course #1 = Principal Diagnosis (1) Acute respiratory failure with hypoxia: (2) COVID-19: (3) Frontotemporal dementia: (4) Expressive aphasia: Plan In summary this is a 74-year-old female who presents with acute respiratory failure with hypoxia in the setting of COVID-19 pneumonitis. Roxana has minimal associated symptoms, however she was persistently at a diminished oxygen saturation on room air maintaining 90% on admission; the patient has no other primary pulmonary or other condition that would explain his persistent hypoxia.she was observed overnight to monitor oxygen saturation. #Covid pneumonitis - No supplemental O2 needed, O2 sat remained stable >90% overnight - Given 1 dose of Remdesivir and dexamethasone IV while hospitalized - Recommend self-isolation for 7-10 days from symptom onset - Supportive measures as needed at home Continue home medications per regimen. No changes made to home medications du ring this hospitalization. Dispo: Discharged home 10/09 Admission HPI Per Admitting Provider Ms. Schaefer is a 74-year-old female whose active medical conditions include frontotemporal dementia, progressive aphasia, perioral tremor, coronary and peripheral arterial disease in the setting of hypertension and hyperlipidemia among other chronic medical conditions who presented to the [facility] on 10/08 due to progressive fatigue and malaise associated with increasing pain with swallowing in the posterior oropharynx. The patient does not recall any recent sick contacts, this is corroborated by her spouse who is present at bedside at the time of my assessment. She denies any fevers, chills, nausea, vomiting, sinus congestion, postnasal drip, shortness of breath or dyspnea on exertion. She does endorse a initially nonproductive cough that began approximately 3 to 4 days prior to presentation which then became notably productive without hemoptysis nor purulent sputum approximately 24 hours prior to their presentation.-+ Discharge Exam General: No acute distress, nondiaphoretic, well-developed, well-nourished. Skin: Warm, dry. No rashes or peripheral edema noted. Cardiac: Regular rate and rhythm without murmurs gallops or rubs. Pulm: Clear to auscultation bilaterally without wheezes, rales or rhonchi. Normal respiratory effort. 95% on room air. Abdominal: Soft, nontender, nondistended. Bowel sounds present. Neuro: A&O x3. Mild parkinsonian tremor, perioral tremor, expressive aphasia (baseline). No focal neurological deficits. Discharge Plan Discharge Items Patient Disposition: Home - Self-Care Reason For Visit: COVID-19 PNEUMONIA, TENUOUS OXYGEN STATUS Discharge Diagnosis: COVID-19 infection Condition on Discharge: Fair Activity: Resume your previous activity Non-emergency contact: Primary Care Provider Call non-emergency contact if: you have any medication questions, your symptoms worsen and you have a fever Follow-up/Referrals: Raciel Hector III, CRNP [Primary Care Provider] - (Follow-up in 1-2 weeks) Diet: Regular Addtl Attending Provider Instructions: Roxana, You were observed overnight in the hospital with a COVID infection. Your oxygen saturation remained stable on room air throughout your hospital stay. You are medically stable to be discharged home. Most people are no longer contagious after 7 days from symptom onset, but a small percentage of people can still be contagious for 9-10 days from symptom onset. I recommend staying at home/self- isolating for at least 7 days (10 is preferred). If you have to leave the house, I recommend wearing a mask to prevent the spread of infection. Upon discharge from the hospital: * Continue supportive measures for COVID infection: You can take Tylenol and/or ibuprofen as needed for fever/body aches. You can use throat lozenges and/or salt water gargles as needed for symptomatic relief. Ensure you are getting plenty of hydration and rest. * Practice strict hand hygiene and respiratory etiquette. * Continue your home medications as prescribed. There have been no changes to your usual home medication regimen. * Follow-up with your PCP in 1-2 weeks. Please return to the hospital if you experience any of the following: New or worsening shortness of breath/difficulty breathing/chest pain, fever of 101 F or higher, confusion, persistent nausea with vomiting, passing out, or any other symptoms concerning for you. It was a pleasure taking care of you while you were in the hospital! Pending Studies at Discharge: No Stand-Alone Forms: [facility] [employer], Smoking Cessation Medications and DC Order Prescriptions: Continued amoxicillin 500 mg capsule 2,000 mg PO DIRECTED PRN (Reason: 1 HR. PRIOR TO DENTAL APPT.) Qty: 4 1RF albuterol sulfate [Ventolin HFA] 90 mcg/actuation HFA aerosol inhaler 2 puff inhalation Q6H PRN (Reason: Shortness Of Breath Or Wheezing) Qty: 8.5 3RF acetaminophen [Tylenol Extra Strength] 500 mg tablet 1,000 mg PO Q8 PRN (Reason: Fever Or Pain) carbidopa-levodopa 25-100 mg tablet 1 tab PO TID Qty: 90 5RF memantine 5 mg tablet 5 mg PO BID Qty: 60 5RF Rx Instructions: take one tab daily for one week, then take one tab bid thereafter multivitamin Tablet 1 tab PO QAM fexofenadine [Allergy Relief (fexofenadine)] 180 mg Tablet 180 mg PO QAM calcium carbonate-vitamin D3 [Calcium 500 + D] 500 mg(1,250mg) -200 unit Tablet 1 tab PO QAM fluoxetine 40 mg capsule 40 mg PO QAM Rx Instructions: TAKE 1 CAPSULE BY MOUTH DAILY omeprazole 40 mg capsule,delayed release(DR/EC) 40 mg PO QAM Rx Instructions: TAKE 1 CAPSULE BY MOUTH ONCE DAILY IN THE MORNING Discharge Orders: Discharge Order (Routine); Ordered 10/09/24 Ordered By: Wendy Abbott Admission Data Admit Date/Time: 10/08/24 15:17 Attending Provider: Paresh Thomson Admit Provider: Pop Overton Primary Care Provider: Raciel Hector III Other Providers: Pop Overton Other Interventions: Discharge Summary Assessment (RN) Last Done: 10/09/24 10:30 Hospital Stay Data Consultations 10/08/24 15:14 ED Decision to Admit Stat Diagnostic Imagining Performed Chest X-Ray 10/08/24 12:41 Chest x-ray, 2 views History: Pneumonia Comparison: 02/10/2023 Technique: 2 views of the chest, PA and lateral Findings: The lungs are clear. The cardiomediastinal silhouette is within normal limits. No pleural effusion or pneumothorax. The heart size appears normal. No bony or soft tissue abnormality. Bilateral shoulder prosthesis. Cervical spine fusion Impression: Normal chest x-ray Electronically signed by Ilsa Lindsay 10-08-2024 2:27 PM Pending Results Patient Have Any Pending Studies at Discharge: No Discharge Instructions Given to Patient (Per Discharging Provider) Roxana, You were observed overnight in the hospital with a COVID infection. Your oxygen saturation remained stable on room air throughout your hospital stay. You are medically stable to be discharged home. Most people are no longer contagious after 7 days from symptom onset, but a small percentage of people can still be contagious for 9-10 days from symptom onset. I recommend staying at home/self- isolating for at least 7 days (10 is preferred). If you have to leave the house, I recommend wearing a mask to prevent the spread of infection. Upon discharge from the hospital: * Continue supportive measures for COVID infection: You can take Tylenol and/or ibuprofen as needed for fever/body aches. You can use throat lozenges and/or salt water gargles as needed for symptomatic relief. Ensure you are getting plenty of hydration and rest. * Practice strict hand hygiene and respiratory etiquette. * Continue your home medications as prescribed. There have been no changes to your usual home medication regimen. * Follow-up with your PCP in 1-2 weeks. Please return to the hospital if you experience any of the following: New or worsening shortness of breath/difficulty breathing/chest pain, fever of 101 F or higher, confusion, persistent nausea with vomiting, passing out, or any other symptoms concerning for you. It was a pleasure taking care of you while you were in the hospital! Total Time Total Time Spent Total Time Spent (In Minutes): Greater than 30 minutes spent completing this discharge process including direct patient care, medication reconciliation, documentation, review of labs and images, and coordination of care. Coding Level of Care Code 13428 INP/OBS DISCH >30 MIN Diagnoses Acute respiratory failure with hypoxia J96.01 COVID-19 U07.1 Frontotemporal dementia G31.09; F02.80 Expressive aphasia R47.01
[2024-10-09] MEDS ORDERED: ENOXAPARIN INJ 40 MG/0.4 ML SYR SQ SCH (17:30)
[2024-10-09] MEDS ORDERED: REMDESIVIR 100 MG in SODIUM CHLORIDE 0.9% 230 ML IV SCH (18:00)
== END 2024-10-09 11:38 | disposition home or self-care (01) ==
LOC: 3N 12:25 → ED 12:25 → SUATTDRO 15:17 → 3N 18:52